=== PATIENT | female | born 1985 | race Caucasian/White ===

== ENCOUNTER 2018-03-10 22:05 | Emergency (ER) | payer OTHER ==
[2018-03-10 22:12] VITALS: RESP 18
--- NOTE | 2018-03-10 23:02 | ED ---
Psych HPI - General Chief Complaint: Psychiatric Symptoms Stated Complaint: psych eval Time Seen by Provider: 03/10/18 22:13 Source: patient, police Mode of arrival: ambulatory - History of Present Illness MD Complaint: suicidal ideation, feels depressed -: week(s) Associated Psychiatric Symptoms: depression, suicidal ideation History of same: Yes Quality: constant Improves With: none Worsens With: none Associated Symptoms: denies other symptoms If Self Harm: admits thoughts of self harm - Related Data Home Medications Medication Instructions Recorded Confirmed Aluminum Chloride [Drysol] 1 applic TP DAILY 12/05/15 01/10/16 Gabapentin [Neurontin] 300 mg PO TID 01/08/16 01/10/16 Diazepam [Valium] 2 mg PO BID 01/10/16 01/10/16 HYDROcodone/APAP 5-325MG [[place] 1 tab PO Q4HR PRN 01/10/16 01/10/16 5-325] Paliperidone [Invega] 9 mg PO DAILY 01/10/16 01/10/16 lamoTRIgine [LaMICtal] 150 mg PO BID 01/10/16 01/10/16 Previous Rx's Medication Instructions Recorded Enoxaparin [Lovenox] 100 mg SQ Q12HR #13 syringe 01/11/16 Warfarin [Coumadin] 5 mg PO DAILY@1800 #7 tab 01/11/16 Allergies Allergy/AdvReac Type Severity Reaction Status Date / Time codeine Allergy Itching Verified 03/10/18 22:10 ibuprofen [From Motrin] Allergy Unknown Verified 03/10/18 22:10 ketorolac tromethamine Allergy Unknown Verified 03/10/18 22:10 [From Toradol] latex Allergy Unknown Verified 03/10/18 22:10 Penicillins Allergy Unknown Verified 03/10/18 22:10 tramadol HCl [From Ultram] Allergy Unknown Verified 03/10/18 22:10 Review of Systems ROS Statement: Those systems with pertinent positive or pertinent negative responses have been documented in the HPI. ROS Other: All systems not noted in ROS Statement are negative. Constitutional: Denies: fever Respiratory: Denies: cough, dyspnea Cardiovascular: Denies: chest pain Gastrointestinal: Denies: abdominal pain, vomiting, diarrhea Genitourinary: Denies: dysuria, hematuria, abnormal menses Musculoskeletal: Denies: back pain Skin: Denies: rash Neurological: Denies: headache Psychiatric: Reports: depression, suicidal thoughts. Denies: auditory hallucinations, visual hallucinations, homicidal thoughts Past Medical History Past Medical History: No Reported History Additional Past Medical History / Comment(s): arthritis, UTI'S,YEAST INFECTIONS , OCC LEAKAGE OF URINE History of Any Multi-Drug Resistant Organisms: MRSA Date of last positivie culture/infection: 2014 MDRO Source:: l axilla Past Surgical History: Bladder Surgery, Orthopedic Surgery Additional Past Surgical History / Comment(s): right total knee replacement, URETHRAL SX WHEN YOUNGER, LT AXILLA HAD MRSA- HAD I&D STATED "THEY HAD TO PACK IT" Past Anesthesia/Blood Transfusion Reactions: No Reported Reaction Past Psychological History: Anxiety, Bipolar, Depression Smoking Status: Current every day smoker Past Alcohol Use History: None Reported Past Drug Use History: Marijuana - Past Family History Mother Family Medical History: Hypertension, Osteoarthritis (OA) Additional Family Medical History / Comment(s): DEPRESSION, DJD Father Family Medical History: No Reported History Sister(s) Family Medical History: Diabetes Mellitus General Exam Limitations: no limitations General appearance: alert, in no apparent distress Head exam: Present: atraumatic, normocephalic Eye exam: Present: normal appearance. Absent: scleral icterus, conjunctival injection ENT exam: Present: normal oropharynx Respiratory exam: Present: normal lung sounds bilaterally. Absent: respiratory distress, wheezes, rales, rhonchi, stridor Cardiovascular Exam: Present: regular rate, normal rhythm, normal heart sounds. Absent: systolic murmur, diastolic murmur, rubs, gallop Neurological exam: Present: alert, normal gait Psychiatric exam: Present: depressed. Absent: agitated, anxious, flat affect, manic, homicidal ideation, suicidal ideation Skin exam: Present: warm, dry, intact, normal color. Absent: rash Course Vital Signs 03/10/18 22:06 Temperature 98.8 F Pulse Rate 75 Respiratory 18 Rate Blood Pressure 93/64 O2 Sat by Pulse 98 Oximetry Medical Decision Making - Lab Data Lab Results 03/10/18 03/10/18 Range/Units 22:43 22:43 Urine HCG, Qual Not Detected (Not Detectd) Urine Opiates Screen Not Detected (NotDetected) Ur Oxycodone Screen Not Detected (NotDetected) Urine Methadone Screen Not Detected (NotDetected) Ur Propoxyphene Screen Not Detected (NotDetected) Ur Barbiturates Screen Not Detected (NotDetected) U Tricyclic Antidepress Not Detected (NotDetected) Ur Phencyclidine Scrn Not Detected (NotDetected) Ur Amphetamines Screen Not Detected (NotDetected) U Methamphetamines Scrn Not Detected (NotDetected) U Benzodiazepines Scrn Not Detected (NotDetected) Urine Cocaine Screen Not Detected (NotDetected) U Marijuana (THC) Screen Detected H (NotDetected) Disposition Clinical Impression: Mood disorder Disposition: HOME SELF-CARE Condition: Fair Instructions: Mood Disorders (ED) Is patient prescribed a controlled substance at d/c from ED?: No Referrals: Hair Larson MD [Primary Care Provider] - 1-2 days
[2018-03-10 23:13] LABS: Amphetamine Screen,Urine Not Detected (NotDetected); Barbiturate Screen,Urine Not Detected (NotDetected); Benzodiazepines Screen,Urine Not Detected (NotDetected); Cocaine Screen,Urine Not Detected (NotDetected); Methadone Screen, Urine Not Detected (NotDetected); Opiate Screen,Urine Not Detected (NotDetected); Oxycodone Screen, Urine Not Detected (NotDetected); Phencyclidine Screen,Urine Not Detected (NotDetected); Tricyclic Antidepressant,Urine Not Detected (NotDetected); Urn Cannabinoid Scrn Detected (NotDetected)
[2018-03-11 01:05] VITALS: BP 100/58; PULSE 100; TEMP 97.9
== END 2018-03-11 01:21 | disposition home or self-care (01) ==
LOC: EC 22:05 → SUPCPDRO 22:05 → EC 03-11 01:21
DX: F39 Unspecified mood [affective] disorder (principal); R45.851 Suicidal ideations; F31.9 Bipolar disorder, unspecified; F41.9 Anxiety disorder, unspecified; F17.200 Nicotine dependence, unspecified, uncomplicated; Z79.899 Other long term (current) drug therapy; Z88.0 Allergy status to penicillin; Z88.5 Allergy status to narcotic agent; Z88.6 Allergy status to analgesic agent; Z91.040 Latex allergy status
CPT/HCPCS: 80306; 81025; 82075; 99285

== ENCOUNTER 2018-06-29 01:02 | Inpatient (IN) | payer MEDICAID, OTHER ==
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
[2018-06-29] MEDS ORDERED: LORazepam 2 MG/ML INJ IM STA (04:45)
[2018-06-29] MEDS ORDERED: ZIPRASIDONE 20 MG VIAL IM STA (04:46)
[2018-06-29] MEDS ORDERED: MAGNESIUM HYDROXIDE 2,400 MG/10 ML CUP PO PRN (06:28)
[2018-06-29] MEDS ORDERED: MAG HYDROX/AL HYDROX/SIMETH 30 ML CUP PO PRN (06:28)
[2018-06-29] MEDS: lamoTRIgine 100 MG TAB PO SCH ×2 (08:10→19:39)
[2018-06-29] MEDS: GABAPENTIN 300 MG CAP PO SCH ×3 (08:10→20:21)
[2018-06-29] MEDS: MELOXICAM 7.5 MG TAB PO SCH (08:16)
[2018-06-29] MEDS ORDERED: DULoxetine HCL 60 MG CAPSULE.DR PO SCH (09:00)
[2018-06-29] MEDS ORDERED: clonazePAM 0.5 MG TAB PO SCH (09:00)
[2018-06-29] MEDS: LORazepam 0.5 MG TAB PO PRN ×2 (09:10→18:23)
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
[2018-06-29] MEDS: ZIPRASIDONE 20 MG VIAL IM PRN (10:44)
--- NOTE | 2018-06-29 17:11 | P.HP ---
Psychiatric H&P - . H&P Date: 06/29/18 History & Physical: Allergies Allergy/AdvReac Type Severity Reaction Status Date / Time codeine Allergy Itching Verified 06/29/18 09:27 ibuprofen [From Motrin] Allergy Unknown Verified 06/29/18 09:27 ketorolac tromethamine Allergy Unknown Verified 06/29/18 12:33 [From Toradol] latex Allergy Unknown Verified 06/29/18 09:27 Penicillins Allergy Unknown Verified 06/29/18 09:27 tramadol HCl [From Ultram] Allergy Unknown Verified 06/29/18 09:27 Vital Signs Temp 97.7 F 06/29/18 12:00 Pulse 90 06/29/18 12:00 Resp 20 06/29/18 12:00 BP 116/72 06/29/18 12:00 Pulse Ox 100 06/29/18 12:00 Intake & Output 06/28/18 06/29/18 06/29/18 18:59 06:59 18:59 Weight 88.36 kg 86.268 kg 06/29/18 16:59 IDENTIFYING DATA: 32-year-old single female patient HPI: Patient admitted to the inpatient psychiatric unit on a petition done by an adult relative. Petition verbalizing "wanting to harm herselfis incoherent. Not taking medication- unknowingly puts herself in harm's way." Also "wanting to harm herself. Wanting to harm others." Patient reports that she is here in the hospital because of a sense of purpose. She says that the reason to be here. She says she can forget about the past and look to the future. She describes that she wants peace on earth and doesn't want fighting. She relates that she wants people to see the bright side. She seems to describe that she remembers thoughts of wanting to harm herself but states that this was a long time ago and denies any recent thoughts. She goes on to state "I would for anybody." "I want to take people's pain away." Regarding some of these concerns on the petition she states she thinks that was the devil speaking to her. PAST PSYCHIATRIC HISTORY: Patient denies any history of auditory hallucinations. She does sometimes she sees things out of the corner of her eye. Says she sees a counselor Eneida through [facility] and sees a DrNader "magaly" who lives in [place] now. She most recently has been on Cymbalta 60 mg twice a day, Lamictal 100 mg twice a day, Klonopin was just started a 0.5 mg daily and she states she doesn't like that. He is also been on Vistaril which she likes as needed for anxiety and Remeron 15 mg at bedtime which has helped her with sleep. She is also noted to be on Neurontin. She doesn't history of bipolar disorder and also describes herself as a worrier. She has had times her she's had thoughts of suicide but never any suicide attempts. PMH: Knee replacement surgery. ALLERGIES: Codeine, Motrin, Toradol, latex, penicillins, Ultram MEDICATIONS: Tylenol when necessary, Maalox when necessary, Klonopin, Cymbalta, Neurontin, Vistaril when necessary, Lamictal, Ativan when necessary, milk of magnesia when necessary, mobic, Remeron, Geodon when necessary CHEMICAL DEPENDENCY HISTORY: Patient states that her drug of choice in the past with marijuana. She has used some cocaine in the past. She has alcohol was never a daily thing. Her last drink was a week ago. She does have a history of overusing Xanax in the past. FAMILY PSYCHIATRIC HISTORY: Mom told her that there is depression in the family. FAMILY CHEMICAL DEPENDENCY HISTORY: None known at this time. SOCIAL HISTORY: Per chart history the patient had a recent relationship breakup. MENTAL STATUS EXAM: She is alert and cooperative with the interview. She is seen with female nursing staff present. Her speech is rapid at times. She denies any history of auditory hallucinations. She has verbalizes sometimes she sees things out of the corner of her eye. Her thought processes are disorganized. Her mood is described as "excellent." She denies any thoughts of harm to self or others. Some of Her thoughts are grandiose in nature. She relays that she would " for anybody." "I want to take people's pain away." I do not note any significant disorientation or memory disturbance. Her insight has some limitations, judgment shows evidence of recent impairment. STRENGTHS/WEAKNESSES: Strengthssome supports; weaknessescoping skills INTELLECTUAL FUNCTIONING: Average IMPRESSIONS: Bipolar disorder, manic with psychosis; likely generalized anxiety disorder; rule out alcohol use disorder, rule out history of stimulant use disorder, rule out history of sedative hypnotic use disorder PLAN: Patient be admitted to the inpatient psychiatric unit [facility] on a voluntary basis. She is agreeable to sign an adult formal voluntary form. She will be placed on SP 15 minute precautions. She'll be participating in group and activity therapies. Recent laboratory workup was done the patient and she will be seen in medical consultation. We will look into family supports. At this time will discontinue Remeron to minimize the antidepressant and we will initiate Geodon 20 mg at bedtime to help with psychosis and to assist with mood stabilization. At this time we'll decrease the dose of Cymbalta discharge is 60 mg daily initiate is presenting in a more manic fashion. We'll discontinue Klonopin, maintain Vistaril when necessary for anxiety. She'll also be maintained on Lamictal for mood stabilization. Estimated length of stay is 5-7 days. Prognosis is guarded.
[2018-06-29 19:00] LABS: Appearance,Urine Clear (Clear); Bacteria,Urine Rare /hpf; Bilirubin,Urine Negative (Negative); Blood,Urine Negative (Negative); Color,Urine Yellow; Glucose,Urine (UA) Negative (Negative); Ketones,Urine Negative (Negative); Leukocyte Esterase,Urine Negative (Negative); Mucus,Urine Occasional /hpf; Nitrite,Urine Negative (Negative); PH, Urine 5.5 (5.0-8.0); Protein,Urine 1+ (Negative); RBC,Urine 1 /hpf (0-5); Specific Gravity,Urine 1.024 (1.001-1.035); Squamous Epithelial Cell,Urine 1 /hpf (0-4); WBC,Urine 1 /hpf (0-5)
[2018-06-29 19:09] LABS: Amphetamine Screen,Urine Not Detected (NotDetected); Cocaine Screen,Urine Not Detected (NotDetected); Opiate Screen,Urine Not Detected (NotDetected); Phencyclidine Screen,Urine Not Detected (NotDetected); Urn Cannabinoid Scrn Detected (NotDetected)
[2018-06-29 19:10] LABS: Barbiturate Screen,Urine Not Detected (NotDetected); Benzodiazepines Screen,Urine Detected (NotDetected); Methadone Screen, Urine Not Detected (NotDetected); Oxycodone Screen, Urine Not Detected (NotDetected); Tricyclic Antidepressant,Urine Not Detected (NotDetected)
[2018-06-29] MEDS: hydrOXYzine PAMOATE 25 MG CAP PO PRN (19:39)
[2018-06-29] MEDS ORDERED: MIRTAZAPINE 15 MG TAB PO SCH (21:00)
[2018-06-29] MEDS ORDERED: ZIPRASIDONE 20 MG CAP PO SCH (21:00)
[2018-06-30] MEDS: ZIPRASIDONE 20 MG VIAL IM PRN (01:57)
[2018-06-30] MEDS: LORazepam 0.5 MG TAB PO PRN ×2 (02:26→15:29)
[2018-06-30] MEDS: lamoTRIgine 100 MG TAB PO SCH ×2 (07:46→20:22)
[2018-06-30] MEDS: GABAPENTIN 300 MG CAP PO SCH ×3 (07:46→20:22)
[2018-06-30] MEDS: DULoxetine HCL 60 MG CAPSULE.DR PO SCH (07:46)
[2018-06-30] MEDS: MELOXICAM 7.5 MG TAB PO SCH (07:46)
[2018-06-30 08:22] LABS: ALT 24 U/L (9-52); AST 27 U/L (14-36); Albumin 4.8 g/dL (3.5-5.0); Alkaline Phosphatase 48 U/L (38-126); Anion Gap 9 mmol/L; Blood Urea Nitrogen 15 mg/dL (7-17); Calcium 9.9 mg/dL (8.4-10.2); Carbon Dioxide 24 mmol/L (22-30); Chloride 107 mmol/L (98-107); Cholesterol 179 mg/dL (<200); Glucose 102 mg/dL (74-99); HDL Cholesterol 80 mg/dL (40-60); LDL Cholesterol,Calculated 87 mg/dL (0-99); Sodium 140 mmol/L (137-145); Total Bilirubin 0.8 mg/dL (0.2-1.3); Total Protein 7.7 g/dL (6.3-8.2); Triglycerides 58 mg/dL (<150)
[2018-06-30 08:24] LABS: Basophils # (A) 0.1 k/uL (0-0.2); Basophils % (A) 1 %; Eosinophils # (A) 0.9 k/uL (0-0.7); Eosinophils % (A) 9 %; HCT 42.1 % (34.0-46.0); HGB 14.4 gm/dL (11.4-16.0); Lymphocytes % (A) 30 %; MCH 31.4 pg (25.0-35.0); MCHC 34.2 g/dL (31.0-37.0); MCV 91.6 fL (80.0-100.0); Mean Platelet Volume 6.4; Monocytes # (A) 0.7 k/uL (0-1.0); Monocytes % (A) 7 %; Neutrophils # (A) 5.3 k/uL (1.3-7.7); Neutrophils % (A) 52 %; Platelet Count 315 k/uL (150-450); RDW 12.5 % (11.5-15.5); WBC 10.2 k/uL (3.8-10.6)
[2018-06-30 09:02] LABS: Potassium 4.2 mmol/L (3.5-5.1)
--- NOTE | 2018-06-30 13:31 | P.PN ---
Progress Note - Text Progress Note Date: 06/30/18 Interval history: Patient is seen in cross coverage again today. She per staff is having difficulties last night going into other people's rooms. A one-to- one was placed last night related to her behavior. She reports that she was looking for Lan whom she describes as the man that she would like to be with. She does not voice any adverse psychotropic medication side effects. Mental status exam: She is alert, she is seen with one-to-one staff present. She is cooperative with the interview. She does not show any significant agitation. Her mood she describes is doing very well. She denies any thoughts of harm to self or others. She makes reference to the man that she wants to spend the rest of her life with and makes reference to looking for him in rooms last night. Her thought processes appear disorganized. She does not verbalize any hallucinations. Plan: Patient will be titrated up on Geodon to 40 more grams at bedtime to help further with psychosis and mood stabilization. We'll maintain other current medications as ordered. We'll continue to monitor for any medication side effects and monitor her ongoing response to treatment. At this time we'll maintain one-to-one precautions.
[2018-06-30] MEDS: hydrOXYzine PAMOATE 25 MG CAP PO PRN (15:29)
[2018-06-30] MEDS ORDERED: ZIPRASIDONE 40 MG CAP PO SCH (21:00)
[2018-06-30] MEDS: LORazepam 2 MG/ML INJ IM PRN (22:18)
[2018-07-01] MEDS: hydrOXYzine PAMOATE 25 MG CAP PO PRN (02:25)
[2018-07-01] MEDS: LORazepam 0.5 MG TAB PO PRN (06:32)
[2018-07-01] MEDS: GABAPENTIN 300 MG CAP PO SCH (08:49)
[2018-07-01] MEDS: lamoTRIgine 100 MG TAB PO SCH ×2 (08:49→20:09)
[2018-07-01] MEDS: DULoxetine HCL 60 MG CAPSULE.DR PO SCH (08:49)
[2018-07-01] MEDS: MELOXICAM 7.5 MG TAB PO SCH (08:49)
--- NOTE | 2018-07-01 11:23 | P.PN ---
Subjective Progress Note Date: 07/01/18 Principal diagnosis: Bipolar disorder, manic with psychosis; likely generalized anxiety disorder; rule out alcohol use disorder, rule out history of stimulant use disorder "I'm so confused, I just want to find a , everybody tells me him wrong and I just want a lot of her body and take care of everybody" Objective - Vital Signs Vital signs: Vital Signs Temp 98.1 F 07/01/18 02:35 Pulse 77 07/01/18 02:35 Resp 16 07/01/18 02:35 BP 130/65 07/01/18 02:35 Pulse Ox 100 06/29/18 12:00 Intake & Output 06/30/18 07/01/18 07/01/18 18:59 06:59 18:59 Weight 87.5 kg - Labs CBC & Chem 7: 06/30/18 07:51 06/30/18 07:54 Labs: Microbiology - Last 24 Hours (Table) 06/29/18 Unknown Urine Culture - Final Urine,Clean Catch Assessment and Plan Assessment: HPI: Patient admitted to the inpatient psychiatric unit on a petition done by an adult relative. Petition verbalizing "wanting to harm herselfis incoherent. Not taking medication- unknowingly puts herself in harm's way." Also "wanting to harm herself. Wanting to harm others." Patient reports that she is here in the hospital because of a sense of purpose. She says that the reason to be here. She says she can forget about the past and look to the future. She describes that she wants peace on earth and doesn't want fighting. She relates that she wants people to see the bright side. She seems to describe that she remembers thoughts of wanting to harm herself but states that this was a long time ago and denies any recent thoughts. She goes on to state "I would for anybody." "I want to take people's pain away." Regarding some of these concerns on the petition she states she thinks that was the devil speaking to her. Mental Status Examination - General Appearance: [ disheveled, bizarre, appears older than stated age Speech/Language: [ rapid, rambled, mumbling, hesitant, halting, expressive, loud Attitude/Behavior: [guarded, irritable, withdrawn, indifferent] Mood: [depressed, anxious, irritable, angry, fearful, hopelessness Affect: [ lively, incongruent, labile, blunted constricted Orientation: [time, person, place situation] Thought Content: [ delusions, obsessions Risk Factors: [suicidal (ideations, plan), and/or Homicidal (ideations, plan), other] Perception: [wnl, denies hallucinations (auditory, visual, tactile), other] Thought Processes: [Not goal-oriented, very concrete, circumstantial, extremely tangential] Concentration/Attention Span: [ impaired] [Per observation and interview with the patient] Recent Memory: [ impaired] [0, 1, 2 or 3 out of 3 in 3 minutes] Remote Memory: [wnl] [past events, as related history] Intelligence: [below average] [based on history, based on vocabulary, syntax, grammar, and content] Judgement: [ poor] [per patient's behavior/history of present illness] Insight: [ poor] [understanding severity of illness/history of present illness] Plan:Patient be admitted to the inpatient psychiatric unit [facility] on a voluntary basis. She is agreeable to sign an adult formal voluntary form. She will be placed on SP 15 minute precautions. She'll be participating in group and activity therapies. Recent laboratory workup was done the patient and she will be seen in medical consultation. We will look into family supports. At this time will discontinue Remeron to minimize the antidepressant and we will initiate Geodon 20 mg at bedtime to help with psychosis and to assist with mood stabilization. At this time we'll decrease the dose of Cymbalta discharge is 60 mg daily initiate is presenting in a more manic fashion. We'll discontinue Klonopin, maintain Vistaril when necessary for anxiety. She'll also be maintained on Lamictal for mood stabilization. Estimated length of stay is 5-7 days. Prognosis is guarded. 07/01/2018: She is taken off her gabapentin, due to her agitation and psychosis haloperidol 5 mg IM given now, with 3 mg Haldol when necessary 4 hours, change Lamictal to 200 mg at bedtime for mood stability. (1) Acute psychosis Current Visit: Yes Status: Acute Code(s): F23 - BRIEF PSYCHOTIC DISORDER SNOMED Code(s): 91405363 (2) Bipolar disorder Current Visit: Yes Status: Acute Code(s): F31.9 - BIPOLAR DISORDER, UNSPECIFIED SNOMED Code(s): 76630561 Time with Patient: Less than 30
[2018-07-01] MEDS: HALOPERIDOL LACTATE 5 MG/ML 1 ML VIAL IM SCH ×3 (11:42→23:41)
[2018-07-01] MEDS: HALOPERIDOL LACTATE 5 MG/ML 1 ML VIAL IM PRN (19:48)
[2018-07-01] MEDS: LORazepam 2 MG/ML INJ IM PRN (19:48)
[2018-07-02] MEDS: MELOXICAM 7.5 MG TAB PO SCH (08:16)
[2018-07-02] MEDS: HALOPERIDOL LACTATE 5 MG/ML 1 ML VIAL IM SCH (08:17)
--- NOTE | 2018-07-02 10:10 | P.PN ---
Subjective Progress Note Date: 07/02/18 Principal diagnosis: Bipolar disorder, manic with psychosis; likely generalized anxiety disorder; rule out alcohol use disorder, rule out history of stimulant use disorder "I'm so confused, I just want to find a , everybody tells me him wrong and I just want a lot of her body and take care of everybody" 07/02/2018: Patient was able to communicate better today but still remains delusional, not oriented to time or situation. She displays multiple delusional aspects of her own personal life including being on Facebook and has no idea how to use Facebook. She is not suicidal today but displays wide range of affect from tearfulness to happiness Objective - Vital Signs Vital signs: Vital Signs Temp 97.8 F 07/02/18 06:34 Pulse 106 H 07/02/18 06:34 Resp 18 07/02/18 06:34 BP 125/74 07/02/18 06:34 Pulse Ox 100 06/29/18 12:00 - Labs CBC & Chem 7: 06/30/18 07:51 06/30/18 07:54 Assessment and Plan Assessment: HPI: Patient admitted to the inpatient psychiatric unit on a petition done by an adult relative. Petition verbalizing "wanting to harm herselfis incoherent. Not taking medication- unknowingly puts herself in harm's way." Also "wanting to harm herself. Wanting to harm others." Patient reports that she is here in the hospital because of a sense of purpose. She says that the reason to be here. She says she can forget about the past and look to the future. She describes that she wants peace on earth and doesn't want fighting. She relates that she wants people to see the bright side. She seems to describe that she remembers thoughts of wanting to harm herself but states that this was a long time ago and denies any recent thoughts. She goes on to state "I would for anybody." "I want to take people's pain away." Regarding some of these concerns on the petition she states she thinks that was the devil speaking to her. Mental Status Examination - General Appearance: [ disheveled, bizarre, appears older than stated age Speech/Language: [ rapid, rambled, mumbling, hesitant, halting, expressive, loud Attitude/Behavior: [guarded, irritable, withdrawn, indifferent] Mood: [depressed, anxious, irritable, angry, fearful, hopelessness Affect: [ lively, incongruent, labile, blunted constricted Orientation: [Not to time, person, not to situation Thought Content: [ delusions, obsessions Risk Factors: [Denies suicidal (ideations, plan), and/or Homicidal (ideations, plan), other] Perception: [wnl, admits to hallucinations (auditory, visual, tactile), other] Thought Processes: [Not goal-oriented, very concrete, circumstantial, extremely tangential] Concentration/Attention Span: [ impaired] [Per observation and interview with the patient] Recent Memory: [ impaired] [0, 1, 2 or 3 out of 3 in 3 minutes] Remote Memory: [wnl] [past events, as related history] Intelligence: [below average] [based on history, based on vocabulary, syntax, grammar, and content] Judgement: [ poor] [per patient's behavior/history of present illness] Insight: [ poor] [understanding severity of illness/history of present illness] Plan:Patient be admitted to the inpatient psychiatric unit [facility] on a voluntary basis. She is agreeable to sign an adult formal voluntary form. She will be placed on SP 15 minute precautions. She'll be participating in group and activity therapies. Recent laboratory workup was done the patient and she will be seen in medical consultation. We will look into family supports. At this time will discontinue Remeron to minimize the antidepressant and we will initiate Geodon 20 mg at bedtime to help with psychosis and to assist with mood stabilization. At this time we'll decrease the dose of Cymbalta discharge is 60 mg daily initiate is presenting in a more manic fashion. We'll discontinue Klonopin, maintain Vistaril when necessary for anxiety. She'll also be maintained on Lamictal for mood stabilization. Estimated length of stay is 5-7 days. Prognosis is guarded. 07/01/2018: She is taken off her gabapentin, due to her agitation and psychosis haloperidol 5 mg IM given now, with 3 mg Haldol when necessary 4 hours, change Lamictal to 200 mg at bedtime for mood stability. 07/02/2018: She is stable off her gabapentin, 5 mg IM of Haldol 3 times a day with the change today to 10 mg oral twice a day and Lamictal 200 mg by mouth daily at bedtime for mood stability. Patient admits to smoking marijuana daily and feels it gives her that her concentration. This person lacks insight. (1) Acute psychosis Current Visit: Yes Status: Acute Code(s): F23 - BRIEF PSYCHOTIC DISORDER SNOMED Code(s): 42699427 (2) Bipolar disorder Current Visit: Yes Status: Acute Code(s): F31.9 - BIPOLAR DISORDER, UNSPECIFIED SNOMED Code(s): 02403147 Time with Patient: Greater than 30
[2018-07-02] MEDS: LORazepam 0.5 MG TAB PO PRN (13:34)
[2018-07-02] MEDS: hydrOXYzine PAMOATE 25 MG CAP PO PRN (13:35)
[2018-07-02] MEDS: lamoTRIgine 100 MG TAB PO SCH (20:59)
[2018-07-02] MEDS: HALOPERIDOL ORAL SOLN 10 MG/5 ML CUP PO SCH (21:00)
[2018-07-02] MEDS ORDERED: HALOPERIDOL 5 MG TAB PO SCH (21:00)
[2018-07-03] MEDS: HALOPERIDOL LACTATE 5 MG/ML 1 ML VIAL IM PRN ×2 (03:26→12:40)
[2018-07-03] MEDS: LORazepam 2 MG/ML INJ IM PRN (03:26)
[2018-07-03] MEDS: MELOXICAM 7.5 MG TAB PO SCH (07:59)
[2018-07-03] MEDS: HALOPERIDOL ORAL SOLN 10 MG/5 ML CUP PO SCH (07:59)
[2018-07-03] MEDS: TRIAMCINOLONE 0.1% CREAM 80 GM TUBE TOPICAL PRN ×2 (08:01→19:43)
[2018-07-03] MEDS: hydrOXYzine PAMOATE 25 MG CAP PO PRN (08:01)
[2018-07-03] MEDS ORDERED: HALOPERIDOL DECANOATE 100 MG/ML 1 ML VIAL IM SCH (11:00)
[2018-07-03] MEDS: LORazepam 0.5 MG TAB PO PRN (12:39)
--- NOTE | 2018-07-03 14:00 | P.PN ---
Subjective Progress Note Date: 07/03/18 Principal diagnosis: Bipolar disorder, manic with psychosis; likely generalized anxiety disorder; rule out alcohol use disorder, rule out history of stimulant use disorder "I'm so confused, I just want to find a , everybody tells me him wrong and I just want a lot of her body and take care of everybody" 07/02/2018: Patient was able to communicate better today but still remains delusional, not oriented to time or situation. She displays multiple delusional aspects of her own personal life including being on Facebook and has no idea how to use Facebook. She is not suicidal today but displays wide range of affect from tearfulness to happiness Objective - Vital Signs Vital signs: Vital Signs Temp 97.9 F 07/03/18 06:47 Pulse 89 07/03/18 06:47 Resp 16 07/03/18 06:47 BP 127/81 07/03/18 06:47 Pulse Ox 100 06/29/18 12:00 - Labs CBC & Chem 7: 06/30/18 07:51 06/30/18 07:54 Assessment and Plan Assessment: HPI: Patient admitted to the inpatient psychiatric unit on a petition done by an adult relative. Petition verbalizing "wanting to harm herselfis incoherent. Not taking medication- unknowingly puts herself in harm's way." Also "wanting to harm herself. Wanting to harm others." Patient reports that she is here in the hospital because of a sense of purpose. She says that the reason to be here. She says she can forget about the past and look to the future. She describes that she wants peace on earth and doesn't want fighting. She relates that she wants people to see the bright side. She seems to describe that she remembers thoughts of wanting to harm herself but states that this was a long time ago and denies any recent thoughts. She goes on to state "I would for anybody." "I want to take people's pain away." Regarding some of these concerns on the petition she states she thinks that was the devil speaking to her. Mental Status Examination - General Appearance: [ disheveled, bizarre, appears older than stated age Speech/Language: [ rapid, rambled, mumbling, hesitant, halting, expressive, loud Attitude/Behavior: [guarded, irritable, withdrawn, indifferent] Mood: [depressed, anxious, irritable, angry, fearful, hopelessness Affect: [ lively, incongruent, labile, blunted constricted Orientation: [Not to time, person, not to situation Thought Content: [ delusions, obsessions Risk Factors: [Denies suicidal (ideations, plan), and/or Homicidal (ideations, plan), other] Perception: [wnl, admits to hallucinations (auditory, visual, tactile), other] Thought Processes: [Not goal-oriented, very concrete, circumstantial, extremely tangential] Concentration/Attention Span: [ impaired] [Per observation and interview with the patient] Recent Memory: [ impaired] [0, 1, 2 or 3 out of 3 in 3 minutes] Remote Memory: [wnl] [past events, as related history] Intelligence: [below average] [based on history, based on vocabulary, syntax, grammar, and content] Judgement: [ poor] [per patient's behavior/history of present illness] Insight: [ poor] [understanding severity of illness/history of present illness] Plan:Patient be admitted to the inpatient psychiatric unit [facility] on a voluntary basis. She is agreeable to sign an adult formal voluntary form. She will be placed on SP 15 minute precautions. She'll be participating in group and activity therapies. Recent laboratory workup was done the patient and she will be seen in medical consultation. We will look into family supports. At this time will discontinue Remeron to minimize the antidepressant and we will initiate Geodon 20 mg at bedtime to help with psychosis and to assist with mood stabilization. At this time we'll decrease the dose of Cymbalta discharge is 60 mg daily initiate is presenting in a more manic fashion. We'll discontinue Klonopin, maintain Vistaril when necessary for anxiety. She'll also be maintained on Lamictal for mood stabilization. Estimated length of stay is 5-7 days. Prognosis is guarded. 07/01/2018: She is taken off her gabapentin, due to her agitation and psychosis haloperidol 5 mg IM given now, with 3 mg Haldol when necessary 4 hours, change Lamictal to 200 mg at bedtime for mood stability. 07/02/2018: She is stable off her gabapentin, 5 mg IM of Haldol 3 times a day with the change today to 10 mg oral twice a day and Lamictal 200 mg by mouth daily at bedtime for mood stability. Patient admits to smoking marijuana daily and feels it gives her that her concentration. This person lacks insight. 07/03/2018: She is still hyperverbal and agitated and wandering and thought wandering. Added Haldol decanoate 60 mg today and discontinue the oral 10 mg twice a day. She currently is on Lamictal 200 mg at bedtime for mood stability. (1) Acute psychosis Current Visit: Yes Status: Acute Code(s): F23 - BRIEF PSYCHOTIC DISORDER SNOMED Code(s): 06305769 (2) Bipolar disorder Current Visit: Yes Status: Acute Code(s): F31.9 - BIPOLAR DISORDER, UNSPECIFIED SNOMED Code(s): 01397110
[2018-07-03] MEDS: lamoTRIgine 100 MG TAB PO SCH (20:37)
[2018-07-04] MEDS: lamoTRIgine 100 MG TAB PO SCH ×2 (07:56→21:38)
[2018-07-04] MEDS: MELOXICAM 7.5 MG TAB PO SCH (07:57)
--- NOTE | 2018-07-04 10:13 | P.PN ---
Subjective Progress Note Date: 07/04/18 Principal diagnosis: Bipolar disorder, manic with psychosis; likely generalized anxiety disorder; rule out alcohol use disorder, rule out history of stimulant use disorder "I'm so confused, I just want to find a , everybody tells me him wrong and I just want a lot of her body and take care of everybody" 07/02/2018: Patient was able to communicate better today but still remains delusional, not oriented to time or situation. She displays multiple delusional aspects of her own personal life including being on Facebook and has no idea how to use Facebook. She is not suicidal today but displays wide range of affect from tearfulness to happiness Objective - Vital Signs Vital signs: Vital Signs Temp 98 F 07/04/18 06:23 Pulse 94 07/04/18 06:23 Resp 16 07/04/18 06:23 BP 124/75 07/04/18 06:23 Pulse Ox 100 06/29/18 12:00 - Labs CBC & Chem 7: 06/30/18 07:51 06/30/18 07:54 Labs: Abnormal Lab Results - Last 24 Hours (Table) 07/03/18 Range/Units 11:28 Prolactin 40.5 H (2.8-29.2) ng/mL Assessment and Plan Assessment: HPI: Patient admitted to the inpatient psychiatric unit on a petition done by an adult relative. Petition verbalizing "wanting to harm herselfis incoherent. Not taking medication- unknowingly puts herself in harm's way." Also "wanting to harm herself. Wanting to harm others." Patient reports that she is here in the hospital because of a sense of purpose. She says that the reason to be here. She says she can forget about the past and look to the future. She describes that she wants peace on earth and doesn't want fighting. She relates that she wants people to see the bright side. She seems to describe that she remembers thoughts of wanting to harm herself but states that this was a long time ago and denies any recent thoughts. She goes on to state "I would for anybody." "I want to take people's pain away." Regarding some of these concerns on the petition she states she thinks that was the devil speaking to her. Mental Status Examination - General Appearance: [ disheveled, bizarre, appears older than stated age Speech/Language: [ rapid, rambled, mumbling, hesitant, halting, expressive, loud Attitude/Behavior: [guarded, irritable, withdrawn, indifferent] Mood: [depressed, anxious, irritable, angry, fearful, hopelessness Affect: [ lively, incongruent, labile, blunted constricted Orientation: [Not to time, person, not to situation Thought Content: [ delusions, obsessions Risk Factors: [Denies suicidal (ideations, plan), and/or Homicidal (ideations, plan), other] Perception: [wnl, admits to hallucinations (auditory, visual, tactile), other] Thought Processes: [Not goal-oriented, very concrete, circumstantial, extremely tangential] Concentration/Attention Span: [ impaired] [Per observation and interview with the patient] Recent Memory: [ impaired] [0, 1, 2 or 3 out of 3 in 3 minutes] Remote Memory: [wnl] [past events, as related history] Intelligence: [below average] [based on history, based on vocabulary, syntax, grammar, and content] Judgement: [ poor] [per patient's behavior/history of present illness] Insight: [ poor] [understanding severity of illness/history of present illness] Plan:Patient be admitted to the inpatient psychiatric unit [facility] on a voluntary basis. She is agreeable to sign an adult formal voluntary form. She will be placed on SP 15 minute precautions. She'll be participating in group and activity therapies. Recent laboratory workup was done the patient and she will be seen in medical consultation. We will look into family supports. At this time will discontinue Remeron to minimize the antidepressant and we will initiate Geodon 20 mg at bedtime to help with psychosis and to assist with mood stabilization. At this time we'll decrease the dose of Cymbalta discharge is 60 mg daily initiate is presenting in a more manic fashion. We'll discontinue Klonopin, maintain Vistaril when necessary for anxiety. She'll also be maintained on Lamictal for mood stabilization. Estimated length of stay is 5-7 days. Prognosis is guarded. 07/01/2018: She is taken off her gabapentin, due to her agitation and psychosis haloperidol 5 mg IM given now, with 3 mg Haldol when necessary 4 hours, change Lamictal to 200 mg at bedtime for mood stability. 07/02/2018: She is stable off her gabapentin, 5 mg IM of Haldol 3 times a day with the change today to 10 mg oral twice a day and Lamictal 200 mg by mouth daily at bedtime for mood stability. Patient admits to smoking marijuana daily and feels it gives her that her concentration. This person lacks insight. 07/03/2018: She is still hyperverbal and agitated and wandering and thought wandering. Added Haldol decanoate 60 mg today and discontinue the oral 10 mg twice a day. She currently is on Lamictal 200 mg at bedtime for mood stability. 07/04/2018: She is less hyperverbal today less agitated and more redirectable. She does not suicidal homicidal but still fixated on Lan being her . (1) Acute psychosis Current Visit: Yes Status: Acute Priority: Medium Code(s): F23 - BRIEF PSYCHOTIC DISORDER SNOMED Code(s): 03349952 (2) Bipolar disorder Current Visit: Yes Status: Acute Priority: Medium Code(s): F31.9 - BIPOLAR DISORDER, UNSPECIFIED SNOMED Code(s): 03480885 Time with Patient: Less than 30
[2018-07-05] MEDS: LORazepam 0.5 MG TAB PO PRN (01:24)
[2018-07-05] MEDS: MELOXICAM 7.5 MG TAB PO SCH (08:14)
[2018-07-05] MEDS: lamoTRIgine 100 MG TAB PO SCH ×2 (08:14→20:29)
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
[2018-07-05] MEDS: HALOPERIDOL LACTATE 5 MG/ML 1 ML VIAL IM PRN (21:10)
[2018-07-05] MEDS: LORazepam 2 MG/ML INJ IM PRN (21:12)
[2018-07-06] MEDS: lamoTRIgine 100 MG TAB PO SCH ×3 (08:08→23:35)
[2018-07-06] MEDS: MELOXICAM 7.5 MG TAB PO SCH (08:08)
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
[2018-07-06] MEDS: HALOPERIDOL LACTATE 5 MG/ML 1 ML VIAL IM PRN (16:49)
[2018-07-06] MEDS: LORazepam 2 MG/ML INJ IM PRN (16:49)
[2018-07-06] MEDS: HALOPERIDOL ORAL SOLN 10 MG/5 ML CUP PO SCH ×2 (20:49→23:35)
[2018-07-07] MEDS: MELOXICAM 7.5 MG TAB PO SCH (08:19)
[2018-07-07] MEDS: lamoTRIgine 100 MG TAB PO SCH ×2 (08:19→20:04)
[2018-07-07] MEDS: HALOPERIDOL ORAL SOLN 10 MG/5 ML CUP PO SCH ×2 (08:19→20:04)
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
[2018-07-07] MEDS: HALOPERIDOL LACTATE 5 MG/ML 1 ML VIAL IM PRN (14:41)
[2018-07-07] MEDS: LORazepam 2 MG/ML INJ IM PRN (14:42)
[2018-07-08] MEDS: HALOPERIDOL ORAL SOLN 10 MG/5 ML CUP PO SCH ×2 (07:44→21:42)
[2018-07-08] MEDS: MELOXICAM 7.5 MG TAB PO SCH (07:45)
[2018-07-08] MEDS: lamoTRIgine 100 MG TAB PO SCH ×2 (07:45→21:44)
[2018-07-08] MEDS: LORazepam 0.5 MG TAB PO PRN (10:18)
[2018-07-08] MEDS: hydrOXYzine PAMOATE 25 MG CAP PO PRN ×2 (10:18→18:24)
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
[2018-07-08] MEDS: HALOPERIDOL LACTATE 5 MG/ML 1 ML VIAL IM PRN (16:26)
[2018-07-08] MEDS: LORazepam 2 MG/ML INJ IM PRN (16:27)
[2018-07-09] MEDS: LORazepam 0.5 MG TAB PO PRN ×2 (08:02→16:24)
[2018-07-09] MEDS: MELOXICAM 7.5 MG TAB PO SCH (08:03)
[2018-07-09] MEDS: lamoTRIgine 100 MG TAB PO SCH ×2 (08:03→22:23)
[2018-07-09] MEDS: hydrOXYzine PAMOATE 25 MG CAP PO PRN ×2 (08:03→16:22)
[2018-07-09] MEDS: HALOPERIDOL ORAL SOLN 10 MG/5 ML CUP PO SCH (08:04)
[2018-07-09] MEDS: HALOPERIDOL LACTATE 5 MG/ML 1 ML VIAL IM PRN (11:02)
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
[2018-07-09] MEDS ORDERED: flUPHENAZine 2.5 MG/ML (MDV) 10 ML VIAL IM SCH (18:00)
[2018-07-09] MEDS: flUPHENAZine 2.5 MG/ML (MDV) 10 ML VIAL IM PRN (18:44)
[2018-07-09] MEDS: BENZTROPINE MESYLATE 1 MG TAB PO SCH (22:23)
[2018-07-10] MEDS: LORazepam 0.5 MG TAB PO PRN (06:51)
[2018-07-10] MEDS: BENZTROPINE MESYLATE 1 MG TAB PO SCH ×2 (08:24→20:14)
[2018-07-10] MEDS: lamoTRIgine 100 MG TAB PO SCH ×2 (08:24→20:14)
[2018-07-10] MEDS: MELOXICAM 7.5 MG TAB PO SCH (08:24)
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
[2018-07-11] MEDS: ACETAMINOPHEN TAB 325 MG TAB PO PRN (03:34)
[2018-07-11] MEDS: LORazepam 0.5 MG TAB PO PRN (03:37)
[2018-07-11] MEDS: lamoTRIgine 100 MG TAB PO SCH ×2 (07:50→21:15)
[2018-07-11] MEDS: BENZTROPINE MESYLATE 1 MG TAB PO SCH ×2 (07:50→21:15)
[2018-07-11] MEDS: MELOXICAM 7.5 MG TAB PO SCH (07:50)
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
[2018-07-11] MEDS: flUPHENAZine 2.5 MG/ML (MDV) 10 ML VIAL IM PRN (17:17)
[2018-07-11] MEDS: LORazepam 2 MG/ML INJ IM PRN (17:17)
[2018-07-11] MEDS: TRIAMCINOLONE 0.1% CREAM 80 GM TUBE TOPICAL PRN (17:39)
[2018-07-12] MEDS: LORazepam 2 MG/ML INJ IM PRN (01:16)
[2018-07-12] MEDS: flUPHENAZine 2.5 MG/ML (MDV) 10 ML VIAL IM PRN (01:17)
[2018-07-12] MEDS ORDERED: flUPHENAZine 2.5 MG/ML (MDV) 10 ML VIAL IM STA (02:04)
[2018-07-12] MEDS ORDERED: diphenhydrAMINE 50 MG/ML 1 ML VIAL IM STA (02:06)
[2018-07-12] MEDS: lamoTRIgine 100 MG TAB PO SCH ×2 (07:46→20:49)
[2018-07-12] MEDS: BENZTROPINE MESYLATE 1 MG TAB PO SCH ×2 (07:46→20:48)
[2018-07-12] MEDS: MELOXICAM 7.5 MG TAB PO SCH (07:46)
[2018-07-12] MEDS: ACETAMINOPHEN TAB 325 MG TAB PO PRN ×2 (07:47→16:49)
[2018-07-12 09:05] VITALS: BMI 34.2
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
[2018-07-12] MEDS: LORazepam 0.5 MG TAB PO PRN ×2 (12:00→19:03)
[2018-07-12] MEDS: flUPHENAZine 2.5 MG/ML (MDV) 10 ML VIAL IM SCH ×2 (15:27→23:56)
[2018-07-12] MEDS: TRIAMCINOLONE 0.1% CREAM 80 GM TUBE TOPICAL PRN (16:49)
[2018-07-12] MEDS ORDERED: diphenhydrAMINE 50 MG CAP PO STA (16:55)
[2018-07-12] MEDS: DIVALPROEX ER 250 MG TAB.ER.24H PO SCH (20:48)
[2018-07-13] MEDS: LORazepam 0.5 MG TAB PO PRN (06:53)
[2018-07-13] MEDS: BENZTROPINE MESYLATE 1 MG TAB PO SCH ×2 (08:44→21:26)
[2018-07-13] MEDS: MELOXICAM 7.5 MG TAB PO SCH (08:45)
[2018-07-13] MEDS: DIVALPROEX ER 250 MG TAB.ER.24H PO SCH ×2 (08:45→21:26)
[2018-07-13] MEDS: lamoTRIgine 100 MG TAB PO SCH ×2 (08:45→21:26)
[2018-07-13] MEDS: flUPHENAZine 2.5 MG/ML (MDV) 10 ML VIAL IM SCH ×2 (08:48→23:03)
[2018-07-13] MEDS: ACETAMINOPHEN TAB 325 MG TAB PO PRN (10:12)
[2018-07-13] MEDS ORDERED: BENZTROPINE MESYLATE 1 MG TAB ONE (15:12)
[2018-07-13] MEDS ORDERED: DIVALPROEX 250 MG TABLET.DR PO ONE (15:12)
[2018-07-13] MEDS ORDERED: flUPHENAZine 2.5 MG/ML (MDV) 10 ML VIAL IM ONE (15:12)
[2018-07-13] MEDS ORDERED: lamoTRIgine 100 MG TAB ONE (15:12)
[2018-07-13] MEDS ORDERED: LORazepam 0.5 MG TAB ONE (15:12)
[2018-07-14] MEDS: LORazepam 0.5 MG TAB PO PRN ×2 (05:18→12:33)
[2018-07-14] MEDS: flUPHENAZine 2.5 MG/ML (MDV) 10 ML VIAL IM SCH ×4 (07:43→23:51)
[2018-07-14] MEDS: MELOXICAM 7.5 MG TAB PO SCH (07:55)
[2018-07-14] MEDS: BENZTROPINE MESYLATE 1 MG TAB PO SCH ×2 (07:55→20:04)
[2018-07-14] MEDS: DIVALPROEX ER 250 MG TAB.ER.24H PO SCH ×2 (07:55→20:05)
[2018-07-14] MEDS: lamoTRIgine 100 MG TAB PO SCH ×2 (07:55→20:05)
[2018-07-14] MEDS: ACETAMINOPHEN TAB 325 MG TAB PO PRN ×3 (12:33→23:56)
--- NOTE | 2018-07-14 16:51 | P.PN ---
Progress Note - Text Progress Note Date: 07/14/18 IDENTIFICATION DATA: 32-year-old woman petitioned for bizarre and unpredictable behaviors. INTERVAL HISTORY: Patient reports being compliant with all her medications. Denies side effects. She was very when she stated she was able to turn a bad situation into a positive one. She reports good sleep and appetite. No major behavioral problems reported. MENTAL STATUS EXAMINATION: Patient appeared in fair grooming and hygiene. Her speech is linear and goal directed. Her mood is reported as good and affect appropriate. Denies active suicidal or homicidal ideations. Denies current auditory or visual hallucinations. Denies paranoia. Insight and judgment are improving ASSESSMENT AND PLAN: Continue current medications Monitor for safety and symptoms
[2018-07-15] MEDS: LORazepam 0.5 MG TAB PO PRN ×3 (05:59→20:08)
[2018-07-15] MEDS: BENZTROPINE MESYLATE 1 MG TAB PO SCH ×2 (08:07→20:05)
[2018-07-15] MEDS: DIVALPROEX ER 250 MG TAB.ER.24H PO SCH (08:07)
[2018-07-15] MEDS: MELOXICAM 7.5 MG TAB PO SCH (08:07)
[2018-07-15] MEDS: flUPHENAZine 2.5 MG/ML (MDV) 10 ML VIAL IM SCH (08:09)
[2018-07-15] MEDS: lamoTRIgine 100 MG TAB PO SCH (08:09)
[2018-07-15] MEDS ORDERED: flUPHENAZine 2.5 MG/ML (MDV) 10 ML VIAL IM PRN (11:01)
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
[2018-07-15] MEDS: ACETAMINOPHEN TAB 325 MG TAB PO PRN (14:29)
[2018-07-15] MEDS: DIVALPROEX ER 500 MG TAB.ER.24H PO SCH (20:05)
[2018-07-15] MEDS: LORazepam 2 MG/ML INJ IM PRN (21:15)
[2018-07-16] MEDS: LORazepam 0.5 MG TAB PO PRN ×3 (07:55→22:12)
[2018-07-16] MEDS: BENZTROPINE MESYLATE 1 MG TAB PO SCH ×2 (07:55→20:54)
[2018-07-16] MEDS: MELOXICAM 7.5 MG TAB PO SCH (07:55)
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
[2018-07-16] MEDS: ACETAMINOPHEN TAB 325 MG TAB PO PRN (16:50)
[2018-07-16] MEDS: DIVALPROEX ER 500 MG TAB.ER.24H PO SCH (20:54)
[2018-07-17] MEDS: BENZTROPINE MESYLATE 1 MG TAB PO SCH ×2 (08:02→20:11)
[2018-07-17] MEDS: MELOXICAM 7.5 MG TAB PO SCH (08:04)
[2018-07-17] MEDS: LORazepam 0.5 MG TAB PO PRN ×3 (08:07→22:36)
[2018-07-17] MEDS: ACETAMINOPHEN TAB 325 MG TAB PO PRN ×2 (10:13→16:39)
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
[2018-07-17] MEDS: DIVALPROEX ER 500 MG TAB.ER.24H PO SCH (20:11)
[2018-07-17] MEDS ORDERED: flUPHENAZine 2.5 MG/ML (MDV) 10 ML VIAL IM STA (22:12)
[2018-07-18] MEDS: MELOXICAM 7.5 MG TAB PO SCH (07:35)
[2018-07-18] MEDS: BENZTROPINE MESYLATE 1 MG TAB PO SCH ×2 (07:35→20:03)
[2018-07-18] MEDS: LORazepam 0.5 MG TAB PO PRN ×3 (07:40→23:02)
[2018-07-18 07:42] VITALS: RESP 16
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
[2018-07-18] MEDS: ACETAMINOPHEN TAB 325 MG TAB PO PRN ×3 (11:48→20:03)
[2018-07-18] MEDS: DIVALPROEX ER 500 MG TAB.ER.24H PO SCH (20:03)
[2018-07-19] MEDS: MELOXICAM 7.5 MG TAB PO SCH (08:09)
[2018-07-19] MEDS: BENZTROPINE MESYLATE 1 MG TAB PO SCH ×2 (08:09→20:20)
[2018-07-19] MEDS: LORazepam 0.5 MG TAB PO PRN ×2 (08:10→17:21)
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
[2018-07-19] MEDS: flUPHENAZine 2.5 MG/ML (MDV) 10 ML VIAL IM PRN ×2 (12:18→20:25)
[2018-07-19] MEDS: ACETAMINOPHEN TAB 325 MG TAB PO PRN ×2 (13:05→21:45)
[2018-07-19] MEDS: DIVALPROEX ER 500 MG TAB.ER.24H PO SCH (20:20)
[2018-07-20] MEDS: BENZTROPINE MESYLATE 1 MG TAB PO SCH ×2 (07:42→20:05)
[2018-07-20] MEDS: MELOXICAM 7.5 MG TAB PO SCH (07:42)
[2018-07-20] MEDS: LORazepam 0.5 MG TAB PO PRN ×3 (07:42→23:28)
--- NOTE | 2018-07-20 11:47 | P.PN ---
Progress Note - Text Interval history: The patient is found in her room she follows me to the library to speak. She was taken off of one-to-one supervision yesterday. She states that she slept well and plans on staying in her room to "stay out of trouble". She anticipates a visit from her mother and boyfriend. She has no questions or concerns regarding her medication. Staff report no behavioral disturbances. Mental status exam: The patient is alert she is dressed in her own clothing she has a disheveled appearance hygiene is adequate. Speech is fluent spontaneous nonpressured. She is somewhat tired appearing but not lethargic. She yawned several times throughout the session. She indicates having no suicidal or homicidal ideation intent or plan. She reports no racing thoughts. She demonstrates no verbal or physical aggressiveness. She demonstrates no involuntary repetitive movements. Plan: The patient will continue on her current psychiatric medication. Depakote level is pending. Vital signs reviewed. We will continue to monitor for safety.
[2018-07-20] MEDS: DIVALPROEX ER 500 MG TAB.ER.24H PO SCH (20:05)
[2018-07-20] MEDS: ACETAMINOPHEN TAB 325 MG TAB PO PRN (23:29)
[2018-07-21] MEDS: BENZTROPINE MESYLATE 1 MG TAB PO SCH ×2 (08:52→20:05)
[2018-07-21] MEDS: MELOXICAM 7.5 MG TAB PO SCH (08:52)
[2018-07-21] MEDS: LORazepam 0.5 MG TAB PO PRN ×2 (08:54→17:18)
--- NOTE | 2018-07-21 13:06 | P.PN ---
Progress Note - Text Interval history: The patient is found in her room she follows me to the [facility] to speak. She indicates her mood is good she states that she had good visit last evening. She indicates she slept all night staff reported she slept 5 hours. Appetite is stable. She feels that her thoughts are becoming more organized. She has no questions or concerns regarding her medication. Free Depakote level is 4.9. She continues to remain in her room for portions of the day which she feels helps her focus. Mental status exam: The patient is alert she is dressed in her own clothing hygiene grooming adequate. Eye contact is appropriate speech is fluent spontaneous nonpressured. Affect is mildly expansive. She demonstrates no tangential thinking and flight of ideas or loose associations. She is reporting no auditory or visual hallucinations or any specific delusions. She demonstrates no verbal or physical aggressiveness. She demonstrates no involuntary repetitive movements. She denies having any suicidal or homicidal ideation intent or plan. She spontaneously describes future oriented thoughts and is hoping to be discharged tomorrow. Plan: The patient will continue on her current psychotropic medication. We will monitor her for safety she is encouraged participate in the milieu but is choosing to isolate at this time. Vital signs reviewed.
[2018-07-21] MEDS: TRIAMCINOLONE 0.1% CREAM 80 GM TUBE TOPICAL PRN (19:47)
[2018-07-21] MEDS: DIVALPROEX ER 500 MG TAB.ER.24H PO SCH (20:05)
[2018-07-21] MEDS: ACETAMINOPHEN TAB 325 MG TAB PO PRN (22:05)
[2018-07-22] MEDS: LORazepam 0.5 MG TAB PO PRN (01:49)
[2018-07-22 01:51] VITALS: BP 106/67; PULSE 94; TEMP 97.6
[2018-07-22] MEDS: MELOXICAM 7.5 MG TAB PO SCH (07:38)
[2018-07-22] MEDS: BENZTROPINE MESYLATE 1 MG TAB PO SCH (07:38)
[2018-07-22] MEDS ORDERED: fluPHENAZine DECANOATE 25 MG/ML 5ML MDV IM ONE (10:57)
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
[2018-07-22] MEDS: ACETAMINOPHEN TAB 325 MG TAB PO PRN (13:20)
== END 2018-07-22 14:10 | disposition home or self-care (01) | DRG 885 ==
LOC: EC 01:02 → 3MHU 06:26
PROVIDERS: ADMIT Psychiatry & Neurology Psychiatry; ATTEND Psychiatry & Neurology Psychiatry
DX: F31.2 Bipolar disorder, current episode manic severe with psychotic features (principal); R45.851 Suicidal ideations; Z87.891 Personal history of nicotine dependence; F41.1 Generalized anxiety disorder; Z79.899 Other long term (current) drug therapy; Z81.8 Family history of other mental and behavioral disorders; Z82.49 Family history of ischemic heart disease and other diseases of the circulatory system; Z83.3 Family history of diabetes mellitus; Z86.14 Personal history of Methicillin resistant Staphylococcus aureus infection; Z91.5 Personal history of self-harm; Z96.651 Presence of right artificial knee joint; M19.90 Unspecified osteoarthritis, unspecified site; Z82.61 Family history of arthritis; G62.9 Polyneuropathy, unspecified; Z87.440 Personal history of urinary (tract) infections; T50.906A Underdosing of unspecified drugs, medicaments and biological substances, initial encounter; Z91.138 Patient's unintentional underdosing of medication regimen for other reason; Z88.5 Allergy status to narcotic agent; Z88.0 Allergy status to penicillin; Z88.8 Allergy status to other drugs, medicaments and biological substances; Z88.6 Allergy status to analgesic agent; Z91.040 Latex allergy status; Z86.718 Personal history of other venous thrombosis and embolism; I10 Essential (primary) hypertension
CPT/HCPCS: 80053; 80061; 80165; 80173; 80175; 80306; 81001; 81025; 82075; 83036; 84146; 84443; 85025; 87086; 96372; 99285

== ENCOUNTER 2019-11-03 10:40 | Inpatient (IN) | payer OTHER, MEDICAID ==
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
[2019-11-03 11:15] LABS: Appearance,Urine Cloudy (Clear); Bacteria,Urine Many /hpf; Bilirubin,Urine Negative (Negative); Blood,Urine Trace (Negative); Color,Urine Light Yellow; Glucose,Urine (UA) Negative (Negative); Ketones,Urine Negative (Negative); Leukocyte Esterase,Urine Moderate (Negative); Nitrite,Urine Negative (Negative); Protein,Urine Negative (Negative); RBC,Urine 1 /hpf (0-5); Specific Gravity,Urine 1.012 (1.001-1.035); Squamous Epithelial Cell,Urine 1 /hpf (0-4); Urobilinogen,Urine <2.0 mg/dL (<2.0); WBC,Urine 18 /hpf (0-5)
[2019-11-03 11:18] LABS: Amphetamine Screen,Urine Not Detected (NotDetected); Barbiturate Screen,Urine Not Detected (NotDetected); Benzodiazepines Screen,Urine Not Detected (NotDetected); Cocaine Screen,Urine Not Detected (NotDetected); Methadone Screen, Urine Not Detected (NotDetected); Opiate Screen,Urine Not Detected (NotDetected); Oxycodone Screen, Urine Not Detected (NotDetected); Phencyclidine Screen,Urine Not Detected (NotDetected); Tricyclic Antidepressant,Urine Detected (NotDetected); Urn Cannabinoid Scrn Detected (NotDetected)
[2019-11-03] MEDS ORDERED: ACETAMINOPHEN TAB 325 MG TAB PO STA ×2 (11:28→15:21)
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
[2019-11-03] MEDS ORDERED: ETOMIDATE 2 MG/ML 10 ML VIAL IVP STA (13:27)
--- NOTE | 2019-11-03 13:30 | XR ---
EXAMINATION TYPE: XR lumbar spine 2 or 3V DATE OF EXAM: 11/03/2019 CLINICAL HISTORY: pain TECHNIQUE: Three views of the lumbar spine are submitted. COMPARISON: 02/10/2014 FINDINGS: There are 5 lumbar type vertebral bodies identified. The lumbar spine shows satisfactory alignment w ithout evidence of acute fracture or dislocation. Vertebral body heights are within normal limits. [id number] degenerative disc space narrowing and spondylosis. Mild lower lumbar facet joint art hropathy. The overlying soft tissue appears unremarkable. IMPRESSION: No acute fracture or dislocation is seen in the lumbar spine. ICD 10 NO FRACTURE, INITIAL EVALUATION
[2019-11-03] MEDS ORDERED: ZIPRASIDONE 20 MG VIAL IM PRN (17:52)
[2019-11-03] MEDS ORDERED: MAGNESIUM HYDROXIDE 2,400 MG/10 ML CUP PO PRN (17:52)
[2019-11-03] MEDS: DIVALPROEX ER 500 MG TAB.ER.24H PO SCH (20:08)
[2019-11-03] MEDS: LITHIUM CARBONATE ER 450 MG TABLET.ER PO SCH (20:08)
[2019-11-03] MEDS: traZODone HCL 50 MG TAB PO SCH (20:08)
[2019-11-03] MEDS ORDERED: DOXEPIN 25 MG CAP PO SCH (21:00)
[2019-11-03] MEDS: hydrOXYzine PAMOATE 25 MG CAP PO PRN (21:28)
[2019-11-03] MEDS: ACETAMINOPHEN TAB 325 MG TAB PO PRN (21:29)
[2019-11-03] MEDS: NICOTINE 21MG/24HR PATCH TRANSDERM SCH (22:30)
[2019-11-03] MEDS: MAG HYDROX/AL HYDROX/SIMETH 30 ML CUP PO PRN (23:23)
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
[2019-11-04] MEDS: LORazepam 1 MG TAB PO PRN ×3 (04:10→23:27)
[2019-11-04] MEDS: LITHIUM CARBONATE ER 450 MG TABLET.ER PO SCH ×2 (08:04→21:14)
[2019-11-04] MEDS: OXYBUTYNIN XL 5 MG TAB.ER.24 PO SCH (08:04)
[2019-11-04] MEDS: NICOTINE 21MG/24HR PATCH TRANSDERM SCH (08:04)
[2019-11-04 08:35] LABS: Basophils # (A) 0.1 k/uL (0-0.2); Basophils % (A) 1 %; Eosinophils # (A) 0.2 k/uL (0-0.7); Eosinophils % (A) 4 %; HCT 38.9 % (34.0-46.0); HGB 12.3 gm/dL (11.4-16.0); Lymphocytes % (A) 32 %; MCH 31.1 pg (25.0-35.0); MCHC 31.6 g/dL (31.0-37.0); MCV 98.4 fL (80.0-100.0); Mean Platelet Volume 7.6; Monocytes # (A) 0.5 k/uL (0-1.0); Monocytes % (A) 9 %; Neutrophils # (A) 3.3 k/uL (1.3-7.7); Neutrophils % (A) 53 %; Platelet Count 254 k/uL (150-450); RBC 3.95 m/uL (3.80-5.40); RDW 12.1 % (11.5-15.5); WBC 6.2 k/uL (3.8-10.6)
[2019-11-04 09:16] LABS: ALT 13 U/L (4-34); AST 17 U/L (14-36); African American GFR (CKD) >90 (>60 ml/min/1.73 sqM); Albumin 3.8 g/dL (3.5-5.0); Alkaline Phosphatase 39 U/L (38-126); Anion Gap 7 mmol/L; Blood Urea Nitrogen 14 mg/dL (7-17); Calcium 9.2 mg/dL (8.4-10.2); Carbon Dioxide 27 mmol/L (22-30); Chloride 106 mmol/L (98-107); Cholesterol 164 mg/dL (<200); Glucose 99 mg/dL (74-99); HDL Cholesterol 63 mg/dL (40-60); LDL Cholesterol,Calculated 87 mg/dL (0-99); Non-African American GFR(CKD) 84 (>60 ml/min/1.73 sqM); Sodium 140 mmol/L (137-145); Total Bilirubin 0.2 mg/dL (0.2-1.3); Total Protein 6.4 g/dL (6.3-8.2); Triglycerides 69 mg/dL (<150)
[2019-11-04 09:38] LABS: Potassium 4.5 mmol/L (3.5-5.1)
[2019-11-04 11:41] LABS: Lithium <0.2 mmol/L
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
[2019-11-04 11:50] LABS: Valproic Acid (Depakene) 73.9 ug/mL
[2019-11-04] MEDS: hydrOXYzine PAMOATE 25 MG CAP PO PRN ×2 (15:45→23:27)
[2019-11-04] MEDS: MAG HYDROX/AL HYDROX/SIMETH 30 ML CUP PO PRN (17:19)
[2019-11-04 17:41] LABS: Hemoglobin A1C 4.9 % (4.0-6.0)
[2019-11-04] MEDS: DIVALPROEX ER 500 MG TAB.ER.24H PO SCH (21:14)
[2019-11-04] MEDS: traZODone HCL 50 MG TAB PO SCH (21:14)
[2019-11-05] MEDS: MAG HYDROX/AL HYDROX/SIMETH 30 ML CUP PO PRN (08:05)
[2019-11-05] MEDS: ACETAMINOPHEN TAB 325 MG TAB PO PRN ×2 (08:06→20:20)
[2019-11-05] MEDS: LITHIUM CARBONATE ER 450 MG TABLET.ER PO SCH ×2 (08:06→20:19)
[2019-11-05] MEDS: NICOTINE 21MG/24HR PATCH TRANSDERM SCH (08:06)
[2019-11-05] MEDS: OXYBUTYNIN XL 5 MG TAB.ER.24 PO SCH (08:06)
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
[2019-11-05] MEDS: LORazepam 1 MG TAB PO PRN ×2 (10:29→18:14)
[2019-11-05] MEDS: hydrOXYzine PAMOATE 25 MG CAP PO PRN (15:32)
[2019-11-05] MEDS: DIVALPROEX ER 500 MG TAB.ER.24H PO SCH (20:19)
[2019-11-05] MEDS: traZODone HCL 50 MG TAB PO SCH (20:20)
[2019-11-05] MEDS: NITROFURANTOIN MONOHYD/M-CRYST 100 MG CAP PO SCH (21:47)
[2019-11-06] MEDS: LITHIUM CARBONATE ER 450 MG TABLET.ER PO SCH ×2 (07:53→20:39)
[2019-11-06] MEDS: NITROFURANTOIN MONOHYD/M-CRYST 100 MG CAP PO SCH ×2 (07:53→20:39)
[2019-11-06] MEDS: OXYBUTYNIN XL 5 MG TAB.ER.24 PO SCH (07:53)
[2019-11-06] MEDS: NICOTINE 21MG/24HR PATCH TRANSDERM SCH (07:53)
[2019-11-06] MEDS: ACETAMINOPHEN TAB 325 MG TAB PO PRN ×2 (11:10→17:17)
[2019-11-06] MEDS: hydrOXYzine PAMOATE 25 MG CAP PO PRN ×2 (11:10→20:40)
--- NOTE | 2019-11-06 12:02 | P.PN ---
Progress Note - Text Interval history: The patient's found in her room she follows me to an interview room.She indicates that her mood is okay. She indicates she slept last night staff reported she slept 6 hours. Staff report that the patient is fairly restless in group she stimulus bound and is not able to tolerate group for very long before she gets up and leaves. We reviewed her psychiatric medication she has no questions or concerns we were able to verify that the dose of Invega Sustenna was given October 26. Mental status exam: The patient's is dressed in the same clothing hygiene grooming fair, eye contact is appropriate speech is fluent spontaneous pressured at times she is verbose. Thought process continues to demonstrate tangential thinking loose associations. She is describing some erotomanic delusions. Insight into her symptoms is impaired. She is reporting no suicidal or homicidal thoughts. She endorses no auditory or visual hallucinations. She demonstrates no verbal or physical aggressiveness. Affect is labile during the session. Plan: The patient will continue on her current psychotropic medications. We will consider augmenting the antipsychotic if necessary. She admits to being off of the Depakote and lithium prior to the admission so I would expect some stabilization with us restarting those medications. Vital signs reviewed. We will continue to monitor for safety. She requires continued psychiatric hospitalization.
[2019-11-06] MEDS: LORazepam 1 MG TAB PO PRN (16:33)
[2019-11-06] MEDS: MAG HYDROX/AL HYDROX/SIMETH 30 ML CUP PO PRN (17:17)
[2019-11-06] MEDS: traZODone HCL 50 MG TAB PO SCH (20:39)
[2019-11-06] MEDS: DIVALPROEX ER 500 MG TAB.ER.24H PO SCH (20:39)
[2019-11-07] MEDS: ACETAMINOPHEN TAB 325 MG TAB PO PRN ×4 (03:05→21:00)
[2019-11-07] MEDS: LORazepam 1 MG TAB PO PRN ×3 (03:06→16:37)
[2019-11-07] MEDS: NICOTINE 21MG/24HR PATCH TRANSDERM SCH (08:00)
[2019-11-07] MEDS: NITROFURANTOIN MONOHYD/M-CRYST 100 MG CAP PO SCH ×2 (08:00→20:57)
[2019-11-07] MEDS: LITHIUM CARBONATE ER 450 MG TABLET.ER PO SCH ×2 (08:00→20:57)
[2019-11-07] MEDS: OXYBUTYNIN XL 5 MG TAB.ER.24 PO SCH (08:00)
--- NOTE | 2019-11-07 11:13 | P.PN ---
Progress Note - Text Interval history: The patient is found in her room she follows me to an interview room. She indicates that she feels irritable today. She states that she still trying to "figure this all out". She again speaks of wanting to be with a man named Johnathon. He states she doesn't know when she is supposed to get . She spontaneously describes disorganized thinking with disorganized delusional thoughts. She has not been attending groups this morning. Appetite stable reportedly she slept last evening. She has no questions or concerns regarding medication. Mental status exam: The patient is an overweight female appearing her stated age. She is dressed in her own clothing. Eye contact is appropriate speech is fluent spontaneous she is verbose. She continues to demonstrate tangential thinking and loose associations. She continues to spontaneously describe disorganized delusional thoughts. She endorses an irritable mood today affect is congruent. She demonstrates no verbal or physical aggressiveness she demonstrates no involuntary repetitive movements. Insight and judgment remain impaired. She is oriented to person place and date. She reports no suicidal ideation intent or plan. Plan: The patient will continue on her current psychotropic medications. I will add 3 mg of invega at bedtime to supplement the Invega Sustenna injection that she received on October 26. We are allowing the lithium and Depakote time to reach steady state we will draw blood levels next week. She requires continued psychi atric hospitalization for her acute symptoms. Vital signs reviewed. She is encouraged to fully participate in the milieu.
[2019-11-07] MEDS: DIVALPROEX ER 500 MG TAB.ER.24H PO SCH (20:56)
[2019-11-07] MEDS: PALIPERIDONE 3 MG TAB.ER.24 PO SCH (20:57)
[2019-11-07] MEDS: traZODone HCL 50 MG TAB PO SCH (20:57)
[2019-11-08] MEDS: NICOTINE 21MG/24HR PATCH TRANSDERM SCH (08:36)
[2019-11-08] MEDS: LITHIUM CARBONATE ER 450 MG TABLET.ER PO SCH ×2 (08:36→20:42)
[2019-11-08] MEDS: LORazepam 1 MG TAB PO PRN (08:37)
[2019-11-08] MEDS: ACETAMINOPHEN TAB 325 MG TAB PO PRN ×2 (08:37→17:34)
[2019-11-08] MEDS: OXYBUTYNIN XL 5 MG TAB.ER.24 PO SCH (08:37)
[2019-11-08] MEDS: NITROFURANTOIN MONOHYD/M-CRYST 100 MG CAP PO SCH ×2 (08:37→20:43)
[2019-11-08] MEDS: hydrOXYzine PAMOATE 25 MG CAP PO PRN ×2 (12:36→17:34)
--- NOTE | 2019-11-08 16:11 | P.PN ---
Progress Note - Text Progress Note Date: 11/08/19 Clinical Problems: Bipolar disorder most recent episode manic with psychotic features, cannabis use disorder Interim history: And the medical record and interviewed the patient. She was without complaint or concern. She denied side effects to her current medications. She talked openly about the circumstances that led to this hospitalization included the belief that she has special garcia for example that she can control the weather and can control the outcome "of the world." She has had no episodes of behavioral dyscontrol. She fequently requests history for complaints of "anxiety". She intermittently attends therapeutic groups and activities. She slept 6 hours last night. Mental status exam: She presented as a moderately obese 34-year-old female who was pleasant on approach. She manic contact and attended the interview. She is a bright facial expression. She showed no abnormality of psychomotor activity. She was not restless or agitated. Her speech was spontaneous with normal rate and rhythm. She had no articulation difficulties. Her affect was elevated but appropriate. She denied suicidal ideation, wishes or homicidal ideation. She denied feeling hopeless, helpless or worthless. She denied ideas of reference or paranoid ideation. But expressed grandiose delusional beliefs involving special garcia and abilities. Her thinking was abstract and associations were organized. She denied hallucinations and did not appear to be responding to internal stimuli. Assessment: She has elevated mood but minimal signs or symptoms of sourav or help her sourav. She continues to maintain grandiose delusional beliefs. Plan: Tenuous inpatient treatment. Continue safety precautions. Continue Depakote 1500 mg at bedtime, Vistaril 50 mg by mouth 3 times a day, Lithobid 450 mg twice a day, Invega 3 mg at bedtime and Desyrel 50 mg at bedtime. Encourage participation in therapeutic groups and activities. Evaluate clinical status response to treatment daily basis.
[2019-11-08] MEDS: DIVALPROEX ER 500 MG TAB.ER.24H PO SCH (20:42)
[2019-11-08] MEDS: traZODone HCL 50 MG TAB PO SCH (20:42)
[2019-11-08] MEDS: PALIPERIDONE 3 MG TAB.ER.24 PO SCH (20:42)
[2019-11-09] MEDS: NICOTINE 21MG/24HR PATCH TRANSDERM SCH (10:47)
[2019-11-09] MEDS: LITHIUM CARBONATE ER 450 MG TABLET.ER PO SCH ×2 (10:47→20:41)
[2019-11-09] MEDS: NITROFURANTOIN MONOHYD/M-CRYST 100 MG CAP PO SCH ×2 (10:48→20:41)
[2019-11-09] MEDS: OXYBUTYNIN XL 5 MG TAB.ER.24 PO SCH (10:48)
[2019-11-09] MEDS: ACETAMINOPHEN TAB 325 MG TAB PO PRN ×2 (10:50→20:44)
[2019-11-09] MEDS: LORazepam 1 MG TAB PO PRN ×2 (10:50→20:44)
[2019-11-09 11:07] LABS: ALT 11 U/L (4-34); AST 17 U/L (14-36); African American GFR (CKD) >90 (>60 ml/min/1.73 sqM); Blood Urea Nitrogen 13 mg/dL (7-17); Lithium 0.7 mmol/L; Non-African American GFR(CKD) >90 (>60 ml/min/1.73 sqM)
[2019-11-09 11:12] LABS: Valproic Acid (Depakene) 66.9 ug/mL
--- NOTE | 2019-11-09 14:55 | P.PN ---
Progress Note - Text Progress Note Date: 11/09/19 Clinical Problems: Bipolar disorder most recent episode manic with psychotic features, cannabis use disorder Interim history: I reviewed the medical record and interviewed the patient. Only concern was discharge. She denied side effects to her current medications. She did not talk about her "special abilities". She has had no episodes of behavioral dyscontrol. She intermittently attends therapeutic groups and activities. She slept 7 hours last night. [place] level from this morning was 0.7 and valproic acid level was 66.9 Mental status exam: She presented as a moderately obese 34-year-old female who was pleasant on approach. She manic contact and attended the interview. She is a bright facial expression. She showed no abnormality of psychomotor activity. She was not restless or agitated. Her speech was spontaneous with normal rate and rhythm. She had no articulation difficulties. Her affect was elevated but appropriate. She denied suicidal ideation, wishes or homicidal ideation. She denied feeling hopeless, helpless or worthless. She denied ideas of reference or paranoid ideation. But expressed grandiose delusional beliefs involving special garcia and abilities. Her thinking was abstract and associations were organized. She denied hallucin ations and did not appear to be responding to internal stimuli. Assessment: She has elevated mood but minimal signs or symptoms of sourav or help her sourav. Plan: Continue inpatient treatment. Continue safety precautions. Continue Depakote 1500 mg at bedtime, Vistaril 50 mg by mouth 3 times a day, Lithobid 450 mg twice a day, Invega 3 mg at bedtime and Desyrel 50 mg at bedtime. Encourage participation in therapeutic groups and activities. Evaluate clinical status response to treatment daily basis.
[2019-11-09] MEDS: hydrOXYzine PAMOATE 25 MG CAP PO PRN (17:38)
[2019-11-09] MEDS: PALIPERIDONE 3 MG TAB.ER.24 PO SCH (20:41)
[2019-11-09] MEDS: traZODone HCL 50 MG TAB PO SCH (20:41)
[2019-11-09] MEDS: DIVALPROEX ER 500 MG TAB.ER.24H PO SCH (20:41)
[2019-11-10] MEDS: NICOTINE 21MG/24HR PATCH TRANSDERM SCH (08:42)
[2019-11-10] MEDS: NITROFURANTOIN MONOHYD/M-CRYST 100 MG CAP PO SCH ×2 (08:42→19:51)
[2019-11-10] MEDS: OXYBUTYNIN XL 5 MG TAB.ER.24 PO SCH (08:42)
[2019-11-10] MEDS: LITHIUM CARBONATE ER 450 MG TABLET.ER PO SCH ×2 (08:42→19:51)
[2019-11-10] MEDS: LORazepam 1 MG TAB PO PRN ×3 (08:43→22:43)
[2019-11-10] MEDS: ACETAMINOPHEN TAB 325 MG TAB PO PRN ×2 (08:43→13:39)
--- NOTE | 2019-11-10 10:12 | P.PN ---
Progress Note - Text Interval history: The patient is found in her room she follows me to an interview room. She reports that she feels good. She states that she would like to be discharged today. I reviewed progress notes from the weekend. No report of any behavioral disturbances. Lab work is returned and it all is within normal limits in terms of the Depakote level lithium level BUN/creatinine and liver enzymes. She indicates she is sleeping at night. She is selectively attending groups. Appetite stable. She reports talking to her mother via phone. Mental status exam: The patient is an obese female appearing her stated age. She is dressed in her own clothing. Hygiene grooming adequate. Eye contact is appropriate speech is fluent and spontaneous nonpressured. She reports no hopelessness thinking no suicidal ideation intent or plan. She is reporting no auditory or visual hallucinations she is reporting no specific delusions. She states that she still would like to speak to Johnathon but she appears less preoccupied with this individual. She indicates she has no way of contacting him. She demonstrates no tangential thinking loose associations or flight of ideas today. Insight and judgment improving. Plan: The patient appears to be clinically stabilizing. Her lab work is within acceptable limits. We will monitor her for symptoms of sourav and psychosis again today. If she remains stable and shows continued signs of improvement she may be appropriate for discharge in the next 1-2 days.
[2019-11-10] MEDS: MAG HYDROX/AL HYDROX/SIMETH 30 ML CUP PO PRN (12:22)
[2019-11-10] MEDS: hydrOXYzine PAMOATE 25 MG CAP PO PRN (13:39)
[2019-11-10] MEDS: PALIPERIDONE 3 MG TAB.ER.24 PO SCH (19:50)
[2019-11-10] MEDS: DIVALPROEX ER 500 MG TAB.ER.24H PO SCH (19:51)
[2019-11-10] MEDS: traZODone HCL 50 MG TAB PO SCH (19:51)
[2019-11-11 06:33] VITALS: BP 120/55; PULSE 68; RESP 15
[2019-11-11] MEDS: LITHIUM CARBONATE ER 450 MG TABLET.ER PO SCH ×2 (08:18→19:49)
[2019-11-11] MEDS: NITROFURANTOIN MONOHYD/M-CRYST 100 MG CAP PO SCH ×2 (08:18→19:49)
[2019-11-11] MEDS: NICOTINE 21MG/24HR PATCH TRANSDERM SCH (08:18)
[2019-11-11] MEDS: OXYBUTYNIN XL 5 MG TAB.ER.24 PO SCH (08:18)
[2019-11-11] MEDS: LORazepam 1 MG TAB PO PRN ×2 (08:20→16:08)
[2019-11-11] MEDS: ACETAMINOPHEN TAB 325 MG TAB PO PRN ×2 (08:20→12:28)
[2019-11-11 08:56] VITALS: BMI 40.8
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
[2019-11-11 13:37] VITALS: TEMP 97.7
[2019-11-11] MEDS: PALIPERIDONE 3 MG TAB.ER.24 PO SCH (19:50)
[2019-11-11] MEDS: traZODone HCL 50 MG TAB PO SCH (19:50)
[2019-11-11] MEDS: DIVALPROEX ER 500 MG TAB.ER.24H PO SCH (19:51)
== END 2019-11-11 20:29 | disposition home or self-care (01) | DRG 885 ==
LOC: EC 10:40 → 3MHU 16:32
PROVIDERS: ADMIT Psychiatry & Neurology Psychiatry; ATTEND Psychiatry & Neurology Psychiatry
DX: F31.2 Bipolar disorder, current episode manic severe with psychotic features (principal); Z68.41 Body mass index [BMI] 40.0-44.9, adult; E66.9 Obesity, unspecified; F12.20 Cannabis dependence, uncomplicated; G89.29 Other chronic pain; Z96.651 Presence of right artificial knee joint; Z87.891 Personal history of nicotine dependence; Z86.14 Personal history of Methicillin resistant Staphylococcus aureus infection; Z83.3 Family history of diabetes mellitus; Z82.49 Family history of ischemic heart disease and other diseases of the circulatory system; Z81.8 Family history of other mental and behavioral disorders; Z79.899 Other long term (current) drug therapy; Z88.5 Allergy status to narcotic agent; Z88.0 Allergy status to penicillin; Z88.8 Allergy status to other drugs, medicaments and biological substances; Z88.6 Allergy status to analgesic agent; Z91.040 Latex allergy status
CPT/HCPCS: 70450; 72100; 72125; 80053; 80061; 80164; 80178; 80306; 81001; 81025; 82075; 82565; 83036; 84443; 84450; 84460; 84520; 85025; 87077; 87086; 87186; 99285

== ENCOUNTER 2019-11-14 02:40 | Emergency (ER) | payer OTHER ==
[2019-11-14 02:54] VITALS: BP 125/77; TEMP 98.3
[2019-11-14] MEDS ORDERED: predniSONE 20 MG TAB PO STA (03:09)
[2019-11-14] MEDS ORDERED: diphenhydrAMINE 50 MG/ML 1 ML VIAL IVP STA (03:09)
[2019-11-14] MEDS ORDERED: DIVALPROEX 500 MG TABLET.DR PO STA (03:40)
[2019-11-14 03:44] LABS: African American GFR (CKD) >90 (>60 ml/min/1.73 sqM); Anion Gap 5 mmol/L; Blood Urea Nitrogen 15 mg/dL (7-17); Carbon Dioxide 27 mmol/L (22-30); Chloride 104 mmol/L (98-107); Glucose 94 mg/dL (74-99); Non-African American GFR(CKD) >90 (>60 ml/min/1.73 sqM); Potassium 4.4 mmol/L (3.5-5.1); Sodium 136 mmol/L (137-145)
[2019-11-14 03:45] LABS: Basophils # (A) 0.1 k/uL (0-0.2); Basophils % (A) 1 %; Eosinophils % (A) 9 %; HCT 37.5 % (34.0-46.0); HGB 12.1 gm/dL (11.4-16.0); Lymphocytes # (A) 4.2 k/uL (1.0-4.8); Lymphocytes % (A) 36 %; MCHC 32.3 g/dL (31.0-37.0); MCV 96.1 fL (80.0-100.0); Mean Platelet Volume 7.6; Monocytes # (A) 1.3 k/uL (0-1.0); Monocytes % (A) 12 %; Neutrophils # (A) 4.5 k/uL (1.3-7.7); Neutrophils % (A) 39 %; Platelet Count 289 k/uL (150-450); RBC 3.91 m/uL (3.80-5.40); RDW 12.1 % (11.5-15.5); WBC 11.4 k/uL (3.8-10.6)
[2019-11-14] MEDS ORDERED: hydrOXYzine PAMOATE 25 MG CAP PO ONE (03:50)
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
[2019-11-14 04:35] VITALS: PULSE 97; RESP 16
== END 2019-11-14 04:30 | disposition home or self-care (01) ==
LOC: EC 02:40
DX: L27.0 Generalized skin eruption due to drugs and medicaments taken internally (principal); M79.89 Other specified soft tissue disorders; T50.905A Adverse effect of unspecified drugs, medicaments and biological substances, initial encounter; Z79.899 Other long term (current) drug therapy; Z88.0 Allergy status to penicillin; Z88.5 Allergy status to narcotic agent; Z88.6 Allergy status to analgesic agent; Z91.040 Latex allergy status; Z87.891 Personal history of nicotine dependence; Z96.651 Presence of right artificial knee joint; Z86.718 Personal history of other venous thrombosis and embolism
CPT/HCPCS: 36415; 85379; 80048; 85025; 99283; 96374; J1200; J7512

== ENCOUNTER 2022-07-03 13:09 | Inpatient (IN) | payer MEDICAID, OTHER ==
[2022-07-03] MEDS ORDERED: LORazepam 2 MG/ML INJ IM STA ×2 (14:29→21:38)
[2022-07-03] MEDS ORDERED: LORazepam 2 MG/ML INJ IV STA (14:29)
--- NOTE | 2022-07-03 18:07 | ED ---
Psych HPI - General Source: patient Mode of arrival: EMS <Gem Barahona - Last Filed: 07/03/22 19:03> <Joss Ferrera - Last Filed: 07/03/22 20:48> - General Chief Complaint: Psychiatric Symptoms Stated Complaint: Behavioral Time Seen by Provider: 07/03/22 13:16 - History of Present Illness Initial Comments: Patient is a 36-year-old female who presents for psychiatric evaluation. According to EMS patient was found knocking at a front door stating the house was hers. Patient was walking around outside all night. She agreed psychiatric evaluation. Patient presents very spacey although alert and oriented x 3. States she feels anxious. She denies suicidal or homicidal ideation. Denies visual or auditory hallucinations. Denies alcohol, tobacco, and illicit drug use. Denies fever, chills, chest pain, shortness of breath, abdominal pain, nausea, vomiting, burning with urination. (Gem Barahona) - Related Data Home Medications Medication Instructions Recorded Confirmed Butalb/APAP/Caff 50-325-40Mg 1 tab PO BID PRN 07/03/22 07/03/22 [Fioricet 50-325-40] Cyclobenzaprine [Flexeril] 10 mg PO BID PRN 07/03/22 07/03/22 Divalproex ER [Depakote ER] 1,500 mg PO HS 07/03/22 07/03/22 Divalproex ER [Depakote ER] 250 mg PO DAILY 07/03/22 07/03/22 Divalproex ER [Depakote ER] 500 mg PO DAILY 07/03/22 07/03/22 HYDROcodone/APAP 5-325MG [[place] 1 tab PO TID PRN 07/03/22 07/03/22 5-325] Linaclotide [Linzess] 145 mcg PO AC-BRKFST 07/03/22 07/03/22 [place] Carbonate ER [Lithobid] 450 mg PO DAILY 07/03/22 07/03/22 Oxybutynin Chloride [Ditropan XL] 10 mg PO DAILY 07/03/22 07/03/22 QUEtiapine FUMARATE [SEROquel XR] 400 mg PO HS 07/03/22 07/03/22 Zolpidem [Ambien] 10 mg PO HS PRN 07/03/22 07/03/22 Allergies Allergy/AdvReac Type Severity Reaction Status Date / Time codeine Allergy Unknown Verified 07/03/22 15:40 [From Tylenol-Codeine #3] ibuprofen [From Motrin] Allergy Unknown Verified 07/03/22 15:40 ketorolac [From Toradol] Allergy Unknown Verified 07/03/22 15:40 latex Allergy Unknown Verified 07/03/22 15:40 Penicillins Allergy Unknown Verified 07/03/22 15:40 tramadol Allergy Unknown Verified 07/03/22 15:40 Review of Systems ROS Other: All systems not noted in ROS Statement are negative. <Gem Barahona - Last Filed: 07/03/22 19:03> ROS Other: All systems not noted in ROS Statement are negative. <Joss Ferrera - Last Filed: 07/03/22 20:48> ROS Statement: Those systems with pertinent positive or pertinent negative responses have been documented in the HPI. Past Medical History Smoking Status: Current every day smoker Past Alcohol Use History: Unable to Obtain Past Drug Use History: Unable to Obtain <Gem Barahona - Last Filed: 07/03/22 19:03> General Exam Limitations: no limitations General appearance: alert, in no apparent distress Head exam: Present: atraumatic, normocephalic, normal inspection Respiratory exam: Present: normal lung sounds bilaterally. Absent: respiratory distress, wheezes, rales, rhonchi, stridor Cardiovascular Exam: Present: regular rate, normal rhythm, normal heart sounds. Absent: systolic murmur, diastolic murmur, rubs, gallop, clicks Neurological exam: Present: alert, oriented X3, CN II-XII intact Psychiatric exam: Present: anxious. Absent: normal affect Skin exam: Present: warm, dry, intact, normal color. Absent: rash <Gem Barahona - Last Filed: 07/03/22 19:03> Course Vital Signs 07/03/22 13:10 Temperature 98.3 F Pulse Rate 88 Respiratory 18 Rate O2 Sat by Pulse 100 Oximetry Medical Decision Making <Gem Barahona - Last Filed: 07/03/22 19:03> <Joss Ferrera - Last Filed: 07/03/22 20:48> - Medical Decision Making Was pt. sent in by a medical professional or institution ([facility], [facility]IST, urgent care, hospital, or fci...) When possible be specific @ -[No] Did you speak to anyone other than the patient for history (EMS, parent, family, police, friend...)? What history was obtained from this source @ -[No] Did you review nursing and triage notes (agree or disagree)? Why? @ -[I reviewed and agree with nursing and triage notes] Were old charts reviewed (outside hosp., previous admission, EMS record, old EKG, old radiological studies, urgent care reports/EKG's, fci records)? Report findings @ -[No old charts were reviewed] Differential Diagnosis (chest pain, altered mental status, abdominal pain women, abdominal pain men, vaginal bleeding, weakness, fever, dyspnea, syncope, headache, dizziness, GI bleed, back pain, seizure, CVA, palpatations, mental health)? @ acute psychosis, overdose, ETOH EKG interpreted by me (3pts min.). @ -[As above] X-rays interpreted by me (1pt min.). @ -[None done] CT interpreted by me (1pt min.). @ -[None done] U/S interpreted by me (1pt. min.). @ -[None done] What testing was considered but not performed or refused? (CT, X-rays, U/S, labs)? Why? @ -[None] What meds were considered but not given or refused? Why? @ -[None] Did you discuss the management of the patient with other professionals (professionals i.e. [place] [facility], DIGITAL ARTIST, lab, RT, psych nurse, social worker clinical, emergency planner, teacher, community services officer, onsite case manager)? Give summary @ -[No] Was smoking cessation discussed for >3mins.? @ -[No] Was critical care preformed (if so, how long)? @ -[No] Were there social determinants of health that impacted care today? How? (Homelessness, low income, unemployed, alcoholism, drug addiction, transportation, low edu. Level, literacy, decrease access to med. care, senior care, rehab)? @ -[No] Was there de-escalation of care discussed even if they declined (Discuss DNR or withdrawal of care, Hospice)? DNR status @ -[No] What co-morbidities impacted this encounter? (DM, HTN, Smoking, COPD, CAD, Cancer, CVA, ARF, Chemo, Hep., AIDS, mental health diagnosis, sleep apnea, morbid obesity)? @ -[None] Was patient admitted / discharged? Hospital course, mention meds given and route, prescriptions, significant lab abnormalities, going to OR and other pertinent info. @This is a 36-year-old female presenting for psychiatric evaluation. Patient did try to elope during stay and pulled the fire alarm. She had many paranoid thoughts. Undiagnosed new problem with uncertain prognosis? @ -[No] Drug Therapy requiring intensive monitoring for toxicity (Heparin, Nitro, Insulin, Cardizem)? @ -[No] Were any procedures done? @ -[No] Diagnosis/symptom? @ -[default] Acute, or Chronic, or Acute on Chronic? @ -[default] Uncomplicated (without systemic symptoms) or Complicated (systemic symptoms)? @ -[default] Side effects of treatment? @ -[No] Exacerbation, Progression, or Severe Exacerbation? @ -[No] Poses a threat to life or bodily function? How? (Chest pain, [place], [place], pneumonia, PE, COPD, DKA, ARF, appy, cholecystitis, CVA, Diverticulitis, Homicidal, Suicidal, threat to staff... and all critical care pts) @ -[No] (Gem Barahona) I assumed care of the patient pending EPS evaluation. EPS to evaluate the patient at the bedside and did recommend inpatient treatment. The patient was admitted to the inpatient psychiatric floor. The patient was admitted in stable condition. I did place a clinical certificate on the patient and the patient was petitioned by EPS. (Joss Ferrera) - Lab Data Lab Results 07/03/22 Range/Units 19:54 Urine Color Yellow Urine Appearance Cloudy H (Clear) Urine pH 6.5 (5.0-8.0) Ur Specific [place] 1.027 (1.001-1.035) Urine Protein 1+ H (Negative) Urine Glucose (UA) Negative (Negative) Urine Ketones 1+ H (Negative) Urine Blood Negative (Negative) Urine Nitrite Negative (Negative) Urine Bilirubin Negative (Negative) Urine Urobilinogen <2.0 (<2.0) mg/dL Ur Leukocyte Esterase Negative (Negative) Urine RBC 1 (0-5) /hpf Urine WBC 2 (0-5) /hpf Ur Squamous Epith Cells 7 H (0-4) /hpf Hyaline Casts 4 H (0-2) /lpf Urine Mucus Moderate H (None) /hpf Urine Opiates Screen Detected H (NotDetected) Ur Oxycodone Screen Not Detected (NotDetected) Urine Methadone Screen Not Detected (NotDetected) Ur Propoxyphene Screen Not Detected (NotDetected) Ur Barbiturates Screen Detected H (NotDetected) U Tricyclic Antidepress Detected H (NotDetected) Ur Phencyclidine Scrn Not Detected (NotDetected) Ur Amphetamines Screen Not Detected (NotDetected) U Methamphetamines Scrn Not Detected (NotDetected) U Benzodiazepines Scrn Detected H (NotDetected) Urine Cocaine Screen Not Detected (NotDetected) U Marijuana (THC) Screen Detected H (NotDetected) Disposition <Gem Barahona - Last Filed: 07/03/22 19:03> Time of Disposition: 20:00 Decision to Admit Reason: Admit from EC Decision Date: 07/03/22 Decision Time: 20:00 <Joss Ferrera - Last Filed: 07/03/22 20:48> Clinical Impression: Acute psychosis Disposition: ADMITTED IP TO THIS [facility] Condition: Stable Referrals: None,Stated [Primary Care Provider] - 1-2 days
[2022-07-03 20:27] LABS: Appearance,Urine Cloudy (Clear); Bilirubin,Urine Negative (Negative); Blood,Urine Negative (Negative); Color,Urine Yellow; Glucose,Urine (UA) Negative (Negative); Hyaline Casts,Urine 4 /lpf (0-2); Ketones,Urine 1+ (Negative); Leukocyte Esterase,Urine Negative (Negative); Mucus,Urine Moderate /hpf; Nitrite,Urine Negative (Negative); PH, Urine 6.5 (5.0-8.0); Protein,Urine 1+ (Negative); RBC,Urine 1 /hpf (0-5); Specific Gravity,Urine 1.027 (1.001-1.035); Squamous Epithelial Cell,Urine 7 /hpf (0-4); Urobilinogen,Urine <2.0 mg/dL (<2.0); WBC,Urine 2 /hpf (0-5)
[2022-07-03 20:40] LABS: Amphetamine Screen,Urine Not Detected (NotDetected); Barbiturate Screen,Urine Detected (NotDetected); Benzodiazepines Screen,Urine Detected (NotDetected); Cocaine Screen,Urine Not Detected (NotDetected); Methadone Screen, Urine Not Detected (NotDetected); Opiate Screen,Urine Detected (NotDetected); Oxycodone Screen, Urine Not Detected (NotDetected); Phencyclidine Screen,Urine Not Detected (NotDetected); Tricyclic Antidepressant,Urine Detected (NotDetected); Urn Cannabinoid Scrn Detected (NotDetected)
[2022-07-03] MEDS ORDERED: HALOPERIDOL LACTATE 5 MG/ML 1 ML VIAL IM PRN (21:38)
[2022-07-03] MEDS ORDERED: diphenhydrAMINE 50 MG/ML 1 ML VIAL IM STA (21:38)
[2022-07-03] MEDS ORDERED: HALOPERIDOL LACTATE 5 MG/ML 1 ML VIAL IM STA (21:41)
[2022-07-03] MEDS ORDERED: ACETAMINOPHEN TAB 325 MG TAB PO PRN (23:21)
[2022-07-04] MEDS ORDERED: HALOPERIDOL LACTATE 5 MG/ML 1 ML VIAL IM PRN
[2022-07-04] MEDS ORDERED: haloperidoL 5 MG TAB PO PRN
[2022-07-04] MEDS ORDERED: LORazepam 2 MG/ML INJ IM PRN
[2022-07-04] MEDS: QUEtiapine 200 MG TAB PO SCH ×3 (01:05→20:16)
[2022-07-04] MEDS: DIVALPROEX ER 500 MG TAB.ER.24H PO SCH ×3 (01:05→20:16)
[2022-07-04 08:14] LABS: Basophils % (A) 0 %; Eosinophils # (A) 0.2 k/uL (0-0.7); Eosinophils % (A) 2 %; HCT 41.5 % (34.0-46.0); HGB 13.7 gm/dL (11.4-16.0); Lymphocytes # (A) 3.3 k/uL (1.0-4.8); Lymphocytes % (A) 32 %; MCH 31.3 pg (25.0-35.0); MCHC 32.9 g/dL (31.0-37.0); MCV 94.9 fL (80.0-100.0); Mean Platelet Volume 7.2; Monocytes # (A) 0.9 k/uL (0-1.0); Monocytes % (A) 9 %; Neutrophils # (A) 5.5 k/uL (1.3-7.7); Neutrophils % (A) 53 %; Platelet Count 316 k/uL (150-450); RBC 4.37 m/uL (3.80-5.40); RDW 13.2 % (11.5-15.5); WBC 10.2 k/uL (3.8-10.6)
[2022-07-04 08:27] LABS: ALT 28 U/L (4-34); AST 33 U/L (14-36); African American GFR (CKD) >90 (>60 ml/min/1.73 sqM); Albumin 3.9 g/dL (3.5-5.0); Alkaline Phosphatase 42 U/L (38-126); Anion Gap 3 mmol/L; Blood Urea Nitrogen 15 mg/dL (7-17); Calcium 9.1 mg/dL (8.4-10.2); Carbon Dioxide 26 mmol/L (22-30); Chloride 108 mmol/L (98-107); Glucose 95 mg/dL (74-99); Non-African American GFR(CKD) 79 (>60 ml/min/1.73 sqM); Potassium 4.3 mmol/L (3.5-5.1); Sodium 137 mmol/L (137-145); Total Bilirubin 0.6 mg/dL (0.2-1.3); Total Protein 6.3 g/dL (6.3-8.2)
[2022-07-04] MEDS ORDERED: LITHIUM CARBONATE ER 450 MG TABLET.ER PO SCH (09:00)
[2022-07-04] MEDS ORDERED: NICOTINE 14MG/24HR PATCH TRANSDERM SCH (09:00)
[2022-07-04] MEDS ORDERED: MAGNESIUM HYDROXIDE 2,400 MG/10 ML CUP PO PRN (09:00)
[2022-07-04] MEDS: DIVALPROEX ER 250 MG TAB.ER.24H PO SCH (09:10)
[2022-07-04] MEDS: OXYBUTYNIN 10 MG TAB.ER.24 PO SCH (09:10)
[2022-07-04] MEDS: LORazepam 1 MG TAB PO PRN ×3 (09:11→23:14)
[2022-07-04] MEDS: NON FORMULARY DRUG (Linaclotide [Linzess] 145 MCG Capsule) PO SCH (09:13)
[2022-07-04 10:36] LABS: Lithium <0.2 mmol/L
[2022-07-04] MEDS: MAG HYDROX/AL HYDROX/SIMETH 30 ML CUP PO PRN (12:02)
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
[2022-07-04 19:21] LABS: Chol/HDL Ratio 3.57 Ratio; LDL Cholesterol,Calculated 120.5 mg/dL (0.0-131.0)
[2022-07-04] MEDS: LITHIUM CARBONATE 150 MG CAP PO SCH (20:16)
[2022-07-04] MEDS: BUTALB/APAP/CAFF 50-325-40MG TAB PO PRN (20:17)
[2022-07-04] MEDS: CYCLOBENZAPRINE 10 MG TAB PO PRN (20:17)
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
[2022-07-05] MEDS: DIVALPROEX ER 500 MG TAB.ER.24H PO SCH ×2 (08:26→20:14)
[2022-07-05] MEDS: DIVALPROEX ER 250 MG TAB.ER.24H PO SCH (08:26)
[2022-07-05] MEDS: LITHIUM CARBONATE 150 MG CAP PO SCH ×2 (08:26→20:14)
[2022-07-05] MEDS: OXYBUTYNIN 10 MG TAB.ER.24 PO SCH (08:27)
[2022-07-05] MEDS: QUEtiapine 200 MG TAB PO SCH ×2 (08:27→20:14)
[2022-07-05] MEDS: NON FORMULARY DRUG (Linaclotide [Linzess] 145 MCG Capsule) PO SCH (08:27)
[2022-07-05] MEDS ORDERED: LITHIUM CARBONATE ER 450 MG TABLET.ER PO SCH (09:00)
--- NOTE | 2022-07-05 11:54 | P.PN ---
Progress Note - Text Progress Note Date: 07/05/22 Interval History: Patient was seen wandering the hallways and was directable and agreeable to speak with customs entry writer in the office. Currently, the patient is reporting that she is feeling well. She is currently denying any suicidal or homicidal ideation, intention, or plan. She is not reporting any auditory or visual hallucinations. She has been adherent with medications and is not endorsing any significant side effects. The patient was noted to sleep for 4.5 hours last night. She otherwise reports future and goal orientation. She states that she is prescribed [place] for knee pain as she has had bilateral knee replacements. She however has run out of her prescription and this is confirmed on [facility]. She plans to defer mental health court and agree to mental health court order and to continue taking her medications. She is not endorsing any racing thoughts, mood lability, or grandiosity. Mental Status Exam: General Appearance: Patient appears to be stated age is alert, directable, and cooperative. Behavior: Patient is calmly seated without any agitated behavior. Speech: Patient's speech is fluent and nonpressured. Mood/Affect: Mood is improving mildly, affect is congruent and bright Suicidality/Homicidality: Patient denies having any suicidal or homicidal ideation intent or plan. Perceptions: Patient denies any visual hallucinations and denies any auditory hallucinations Though content/process: No overt delusional thought content endorsed today. Memory and concentration: AOX3, grossly intact for the purposes of this session Judgment and insight: Improving mildly Vital Signs Temp 97.9 F 07/05/22 06:50 Pulse 115 H 07/05/22 06:50 Resp 16 07/05/22 06:50 BP 140/90 07/05/22 06:50 Pulse Ox 96 07/05/22 06:50 FiO2 Laboratory Results - Last 24 Hours 07/04/22 07/04/22 07:22 07:[address] Glu mg/dL 91 Hemoglobin A1c 4.8 Triglycerides 132.00 Cholesterol 204.00 H LDL Cholesterol, Calc 120.5 VLDL Cholesterol, Calc 26.40 HDL Cholesterol 57.10 Cholesterol/HDL Ratio 3.57 Assessment Schizoaffective disorder, bipolar type Cannabis use disorder Plan: -Patient continues to meet criteria for inpatient psychiatric admission for symptom stabilization and safety. The patient has been petitioned and certified. -Medications: Continue Depakote 750 mg by mouth in a.m. and 1500 mg by mouth at bedtime for mood stabilization Continue [place] 450 mg by mouth twice a day for mood stabilization. [place] level on admission was 0.2. Continue Seroquel 200 mg by mouth twice a day for mood stabilization/psychosis We'll restart the patient's [place] 3 times daily when necessary for pain -When necessary Ativan and Haldol for agitation/aggression. -NRT - nicotine patch -SW on board for discharge planning. Encouraged the patient to participate in milieu.
[2022-07-05] MEDS: LORazepam 1 MG TAB PO PRN ×2 (12:28→18:26)
[2022-07-05] MEDS: HYDROcodone/APAP 5-325MG 1 EACH TAB PO PRN (12:28)
[2022-07-05] MEDS: MAG HYDROX/AL HYDROX/SIMETH 30 ML CUP PO PRN (16:22)
[2022-07-06] MEDS: LORazepam 1 MG TAB PO PRN ×3 (00:07→20:07)
[2022-07-06] MEDS: NON FORMULARY DRUG (Linaclotide [Linzess] 145 MCG Capsule) PO SCH (07:32)
[2022-07-06] MEDS: LITHIUM CARBONATE 150 MG CAP PO SCH ×2 (07:33→20:06)
[2022-07-06] MEDS: HYDROcodone/APAP 5-325MG 1 EACH TAB PO PRN ×2 (07:34→20:10)
[2022-07-06] MEDS: QUEtiapine 200 MG TAB PO SCH ×2 (07:34→20:07)
[2022-07-06] MEDS: OXYBUTYNIN 10 MG TAB.ER.24 PO SCH (07:34)
[2022-07-06] MEDS: DIVALPROEX ER 250 MG TAB.ER.24H PO SCH (07:34)
[2022-07-06] MEDS: DIVALPROEX ER 500 MG TAB.ER.24H PO SCH ×2 (07:35→20:06)
--- NOTE | 2022-07-06 11:43 | P.PN ---
Progress Note - Text Progress Note Date: 07/06/22 Interval History: Patient was seen wandering the hallways and was directable and agreeable to speak with law writer in the office. The patient continues to report that she is feeling well. She is currently denying any suicidal or homicidal ideation, intention, and/or plan. She reports no auditory or visual hallucinations. She reports no paranoia or other delusions. She has been adherent with her medications and is not reporting any significant side effects. She plans to defer mental health court. Mental Status Exam: General Appearance: Patient appears to be stated age is alert, directable, and cooperative. Behavior: Patient is calmly seated without any agitated behavior. Speech: Patient's speech is fluent and nonpressured. Mood/Affect: Mood is improving mildly, affect is congruent and bright Suicidality/Homicidality: Patient denies having any suicidal or homicidal ideat ion intent or plan. Perceptions: Patient denies any visual hallucinations and denies any auditory hallucinations Though content/process: No overt delusional thought content endorsed today. Memory and concentration: AOX3, grossly intact for the purposes of this session Judgment and insight: Improving mildly Vital Signs Temp 97.8 F 07/06/22 06:34 Pulse 101 H 07/06/22 06:34 Resp 18 07/06/22 06:34 BP 115/74 07/06/22 06:34 Pulse Ox 100 07/06/22 06:34 FiO2 Laboratory Results - Last 24 Hours 07/04/22 07:22 Valproic Acid 32.0 L Assessment Schizoaffective disorder, bipolar type Cannabis use disorder Plan: -Patient continues to meet criteria for inpatient psychiatric admission for symptom stabilization and safety. The patient has been petitioned and certified. Patient plans to defer. -Medications: Continue Depakote 750 mg by mouth in a.m. and 1500 mg by mouth at bedtime for mood stabilization Continue [place] 450 mg by mouth twice a day for mood stabilization. [place] level on admission was 0.2. Continue Seroquel 200 mg by mouth twice a day for mood stabilization/psychosis CMP, Depakote level, and [place] level ordered for tomorrow. -When necessary Ativan and Haldol for agitation/aggression. -NRT - nicotine patch -SW on board for discharge planning. Encouraged the patient to participate in milieu.
[2022-07-06] MEDS: MAG HYDROX/AL HYDROX/SIMETH 30 ML CUP PO PRN ×2 (15:02→21:37)
[2022-07-07] MEDS: ZOLPIDEM 5 MG TAB PO PRN ×2 (00:59→20:06)
[2022-07-07 06:53] LABS: Albumin 3.5 g/dL (3.5-5.0); Calcium 8.7 mg/dL (8.4-10.2); Lithium 0.7 mmol/L; Potassium 4.5 mmol/L (3.5-5.1); Total Bilirubin 0.3 mg/dL (0.2-1.3); Total Protein 5.8 g/dL (6.3-8.2)
[2022-07-07 06:58] LABS: Valproic Acid (Depakene) 65.2 ug/mL
[2022-07-07] MEDS: LITHIUM CARBONATE 150 MG CAP PO SCH ×2 (08:50→20:04)
[2022-07-07] MEDS: DIVALPROEX ER 500 MG TAB.ER.24H PO SCH ×2 (08:50→20:03)
[2022-07-07] MEDS: QUEtiapine 200 MG TAB PO SCH ×2 (08:51→20:03)
[2022-07-07] MEDS: OXYBUTYNIN 10 MG TAB.ER.24 PO SCH (08:51)
[2022-07-07] MEDS: DIVALPROEX ER 250 MG TAB.ER.24H PO SCH (08:51)
[2022-07-07] MEDS: LORazepam 1 MG TAB PO PRN ×3 (08:53→20:06)
[2022-07-07] MEDS: NON FORMULARY DRUG (Linaclotide [Linzess] 145 MCG Capsule) PO SCH (08:54)
--- NOTE | 2022-07-07 11:05 | P.PN ---
Progress Note - Text Progress Note Date: 07/07/22 Interval History: Patient was seen wandering the hallways and was directable and agreeable to speak with sba underwriter in the office. The patient reports that she is feeling well. She states she is happy to receive ativan as needed for anxiety and expresses concern about not being prescribed this medication in the outpatient setting. She reports she is eating and sleeping well. She reports no auditory or visual hallucinations. She denies any paranoia or other delusions. She denies any suicidal or homicidal ideation, intention, and/or plan. She reports no side effects of her medications and has been adherent. She is agreeable to sign voluntarily onto the psychiatric unit as her court paperwork was initially signed under "Sharmaine Silva" rather than her official legal name. No reported medical issues or concerns. Mental Status Exam: General Appearance: Patient appears to be stated age is alert, directable, and cooperative. Behavior: Patient is calmly seated without any agitated behavior. Speech: Patient's speech is fluent and nonpressured. Mood/Affect: Mood is improving mildly, affect is congruent and bright Suicidality/Homicidality: Patient denies having any suicidal or homicidal ideation intent or plan. Perceptions: Patient denies any visual hallucinations and denies any auditory hallucinations Though content/process: No overt delusional thought content endorsed today. Memory and concentration: AOX3, grossly intact for the purposes of this session Judgment and insight: Improving mildly Vital Signs Temp 97.1 F L 07/07/22 02:50 Pulse 104 H 07/07/22 02:50 Resp 17 07/07/22 02:50 BP 119/77 07/07/22 02:50 Pulse Ox 100 07/07/22 02:50 FiO2 Laboratory Results - Last 24 Hours 07/07/22 06:04 Sodium 137 Potassium 4.5 Chloride 108 H Carbon Dioxide 27 Anion Gap 2 BUN 15 Creatinine 0.97 Est GFR (CKD-EPI)AfAm 87 Est GFR (CKD-EPI)NonAf 75 Glucose 83 Calcium 8.7 Total Bilirubin 0.3 AST 27 ALT 35 H Alkaline Phosphatase 37 L Total Protein 5.8 L Albumin 3.5 Valproic Acid 65.2 [place] 0.7 Assessment Schizoaffective disorder, bipolar type Cannabis use disorder Plan: -Patient continues to meet criteria for inpatient psychiatric admission for symptom stabilization and safety. Patient signed voluntarily onto the psychiatric unit. -Medications: Continue Depakote 750 mg by mouth in a.m. and 1500 mg by mouth at bedtime for mood stabilization Continue [place] 450 mg by mouth twice a day for mood stabilization. [place] level on admission was 0.2. Continue Seroquel 200 mg by mouth twice a day for mood stabilization/psychosis -When necessary Ativan and Haldol for agitation/aggression. -NRT - nicotine patch -SW on board for discharge planning. Encouraged the patient to participate in milieu.
[2022-07-07] MEDS: HYDROcodone/APAP 5-325MG 1 EACH TAB PO PRN ×2 (11:20→20:06)
[2022-07-07] MEDS: MAG HYDROX/AL HYDROX/SIMETH 30 ML CUP PO PRN ×2 (12:19→16:50)
[2022-07-07] MEDS: CYCLOBENZAPRINE 10 MG TAB PO PRN (22:03)
[2022-07-07] MEDS: BUTALB/APAP/CAFF 50-325-40MG TAB PO PRN (22:03)
[2022-07-08] MEDS: LITHIUM CARBONATE 150 MG CAP PO SCH ×2 (08:41→19:56)
[2022-07-08] MEDS: OXYBUTYNIN 10 MG TAB.ER.24 PO SCH (08:41)
[2022-07-08] MEDS: PANTOPRAZOLE 40 MG TABLET PO SCH (08:41)
[2022-07-08] MEDS: DIVALPROEX ER 500 MG TAB.ER.24H PO SCH ×2 (08:41→19:56)
[2022-07-08] MEDS: NON FORMULARY DRUG (Linaclotide [Linzess] 145 MCG Capsule) PO SCH (08:41)
[2022-07-08] MEDS: DIVALPROEX ER 250 MG TAB.ER.24H PO SCH (08:42)
[2022-07-08] MEDS: QUEtiapine 200 MG TAB PO SCH ×2 (08:42→19:56)
[2022-07-08] MEDS: LORazepam 1 MG TAB PO PRN ×3 (08:43→22:05)
[2022-07-08] MEDS: HYDROcodone/APAP 5-325MG 1 EACH TAB PO PRN ×2 (08:43→19:59)
--- NOTE | 2022-07-08 16:09 | P.PN ---
Progress Note - Text Progress Note Date: 07/08/22 Interval history: Patient was seen resting in bed and was directable and agreeable to speak with contract technical writer. She reports her mood is "mixed feelings", but also feels "a lot better today". She reports good sleep and good appetite. She is fixated on being an "empath" and feels things deeply. At this time, patient denies any suicidal or homicidal ideation, intent or plan. Denies any auditory or visual hallucinations. Patient denies any side effects from the medications and has b een compliant with meds. She reports benefit from the meds and states they help slow down her thoughts so she is not so overwhelmed. She is attending some groups but not all. Labs reviewed and Valproic acid and [place] levels are therapeutic, 65.2 and 0.7 respectively. No tremors or EPS observed. Mental status exam: General Appearance: Patient appears to be stated age, obese female, hair blonde, dressed in clean casual attire Behavior: No agitated behavior. Patient is calm and directable. Speech: Patient's speech is fluent and rapid, but non-pressured. Mood/Affect: Mood is improving mildly, affect is congruent. Suicidality/Homicidality: Patient denies having any suicidal or homicidal ideation intent or plan. Perceptions: Patient denies any auditory or visual hallucinations. Though content/process: There is no evidence of any delusional thought content and thought process is circumstantial. Memory and concentration: AOX3, grossly intact for the purposes of this session Judgment and insight: improving mildly Assessment/Plan: Continue with current diagnosis. Patient continues to meet criteria for inpatient psychiatric admission for symptom stabilization and safety. Patient will be maintained on current psychotropic medication regimen. Monitor for medication compliance and for any psychotropic medication side effects. Will continue to monitor ongoing response to treatment. Encouraged participation in milieu.
[2022-07-08] MEDS: ZOLPIDEM 5 MG TAB PO PRN (19:59)
[2022-07-08] MEDS: CYCLOBENZAPRINE 10 MG TAB PO PRN (22:05)
[2022-07-09] MEDS: LORazepam 1 MG TAB PO PRN ×3 (04:18→14:31)
[2022-07-09] MEDS: LITHIUM CARBONATE 150 MG CAP PO SCH ×2 (08:41→19:33)
[2022-07-09] MEDS: DIVALPROEX ER 500 MG TAB.ER.24H PO SCH ×2 (08:42→19:33)
[2022-07-09] MEDS: PANTOPRAZOLE 40 MG TABLET PO SCH (08:42)
[2022-07-09] MEDS: QUEtiapine 200 MG TAB PO SCH ×2 (08:43→19:33)
[2022-07-09] MEDS: DIVALPROEX ER 250 MG TAB.ER.24H PO SCH (08:43)
[2022-07-09] MEDS: OXYBUTYNIN 10 MG TAB.ER.24 PO SCH (08:43)
[2022-07-09] MEDS: HYDROcodone/APAP 5-325MG 1 EACH TAB PO PRN ×2 (08:46→16:48)
[2022-07-09] MEDS: NON FORMULARY DRUG (Linaclotide [Linzess] 145 MCG Capsule) PO SCH (08:53)
[2022-07-09 17:01] VITALS: RESP 16
[2022-07-09] MEDS ORDERED: PROPRANOLOL 10 MG TAB PO PRN (17:25)
--- NOTE | 2022-07-09 17:33 | P.PN ---
Progress Note - Text Progress Note Date: 07/09/22 Interval history: Patient was seen socializing with peers in the [facility] and was directable and agreeable to speak with typewriter repairer. She reports her mood is "good" today, and is cheery and smiling on assessment. She reports good sleep and good appetite. She has utilized her PRN Ativan 1 mg po x 3 so far today, and about 3 daily since admission. We discussed the risk of dependence with Ativan and she reports finding the Ativan control her anger and anxiety. We discussed a trial of Propranolol to help with the physical manifestations of her anxiety and she agrees to try this. At this time, patient denies any suicidal or homicidal ideation, intent or plan. Denies any auditory or visual hallucinations. Patient denies any side effects from the medications and has been compliant with meds. She is attending some groups. Labs reviewed and Valproic acid and [place] levels are therapeutic, 65.2 and 0.7 respectively. No tremors or EPS observed. Mental status exam: General Appearance: Patient appears to be stated age, obese female, hair blonde, dressed in clean casual attire Behavior: No agitated behavior. Patient is calm and directable. Speech: Patient's speech is fluent and non-pressured. Mood/Affect: Mood is "good", affect is bright and reactive. Suicidality/Homicidality: Patient denies having any suicidal or homicidal ideation intent or plan. Perceptions: Patient denies any auditory or visual hallucinations. Though content/process: There is no evidence of any delusional thought content and thought process is circumstantial. Memory and concentration: AOX3, grossly intact for the purposes of this session Judgment and insight: improving mildly Assessment/Plan: Continue with current diagnosis. Patient continues to meet criteria for inpatient psychiatric admission for symptom stabilization and safety. Decrease Ativan 1 mg po QID PRN to Ativan 0.5 mg po TID PRN for anxiety/agitation to minimize dependence. Start trial of Propranolol 10 mg BID PRN for anxiety. Monitor for medication compliance and for any psychotropic medication side effects. Will continue to monitor ongoing response to treatment. Encouraged participation in milieu.
[2022-07-09] MEDS: LORazepam 0.5 MG TAB PO SCH (19:33)
[2022-07-09] MEDS: ZOLPIDEM 5 MG TAB PO PRN (19:34)
[2022-07-09] MEDS: BUTALB/APAP/CAFF 50-325-40MG TAB PO PRN (20:34)
[2022-07-09] MEDS: CYCLOBENZAPRINE 10 MG TAB PO PRN (20:35)
[2022-07-10] MEDS: HYDROcodone/APAP 5-325MG 1 EACH TAB PO PRN (03:51)
[2022-07-10 03:53] VITALS: BP 111/63; PULSE 101; TEMP 97.8
[2022-07-10] MEDS: LORazepam 0.5 MG TAB PO SCH (08:34)
[2022-07-10] MEDS: DIVALPROEX ER 250 MG TAB.ER.24H PO SCH (08:34)
[2022-07-10] MEDS: DIVALPROEX ER 500 MG TAB.ER.24H PO SCH (08:35)
[2022-07-10] MEDS: LITHIUM CARBONATE 150 MG CAP PO SCH (08:35)
[2022-07-10] MEDS: PANTOPRAZOLE 40 MG TABLET PO SCH (08:35)
[2022-07-10] MEDS: QUEtiapine 200 MG TAB PO SCH (08:35)
[2022-07-10] MEDS: OXYBUTYNIN 10 MG TAB.ER.24 PO SCH (08:35)
[2022-07-10] MEDS: NON FORMULARY DRUG (Linaclotide [Linzess] 145 MCG Capsule) PO SCH (08:36)
--- NOTE | 2022-07-10 11:10 | P.DS ---
Providers Date of admission: 07/03/22 23:09 Expected date of discharge: 07/10/22 Attending physician: Sedrick Anguiano MD Consults: 07/03/22 23:21 Consult Physician Routine Consulting Provider: Mary Tamayo Consult Reason/Comments: H&P and medical Do you want consulting provider notified?: Yes Primary care physician: Stated None - Discharge Diagnosis(es) (1) Schizoaffective disorder, bipolar type Current Visit: Yes Status: Acute Priority: High (2) Cannabis use disorder Current Visit: Yes Status: Chronic Priority: Medium Hospital Course: Admission HPI: Patient is a single, on disability, 36-year-old female whose legal name is Sharmaine Clinton, and has a significant history of bipolar disorder who presnted to our emergency department by police for acute psychotic/manic behavior. Patient presented to the hospital on 07/03/2022. The patient was brought into the emergency department by police. While in the emergency department, the patient pulled the fire alarm and attempted to elope from the emergency unit. She was brought back to her room. She appeared to be responding to internal stimuli. She would laugh inappropriately and appeared to have poor understanding of the reality around her. The patient reported that she had gone onto someone's porch and "smashed too stupid ass turtles" before stating, "I wanted go ravage to hell on them. The ones that have fallen out God's graces and have disobeyed." She was noted to be giggling nonsensically all stating these things. She was subsequently petitioned and certified and admitted to the psychiatric unit. On admission on the psychiatric unit, it was determined that the patient's legal name is Sharmaine Clinton and she has been previously admitted to our psychiatric unit. Upon evaluation of the patient, the patient is unable to provide a clear history of consuming up to this hospitalization. She does not recall being brought to the emergency department by police. She states that she has been having difficult time this time of year because this is the 4 year anniversary of the passing of her uncle. She does report she was staying with a close friend named Pieter Prajapati however they had a falling out and now she is homeless. The patient did report that she has been adherent with her psychiatric medications and is open with the [facility] ACT team. Collateral infromation was obtained by Jaida Alcaraz from [facility] ACT Team. She reports that Sharmaine Clinton is client of theirs that is seen on a Sunday to Sunday basis. They report she has been adherent with medications however states that she did have friends over recently and there is concern that she has been using more marijuana. They report that during her last med review, she had her seroquel increased due to worsening manic symptoms. They confirm that her name is Sharmaine Clinton and are unfamiliar with any name change. A second clinical certificate has been filed for court. Patient has previous diagnoses of bipolar disorder and schizoaffective disorder. Patient's home medication regimen includes Seroquel, Depakote, lithium, and Ambien. Previous trials of medication include Prolixin, Cymbalta, Lamictal, Klonopin, Vistaril, Remeron, and Geodon. She was last hospitalized on our psychiatric unit in October 2019. She is currently open with [facility] ACT team Patient denies any history of suicide attempts in the past. Hospital course: Upon admission to the unit patient was initially presenting as overtly manic and grandiose. Furthermore, the patient gave the correct last name listed herself is "Sharmaine Silva" and not "Sharmaine Clinton." She reported "Sharmaine Clinton" was internally. Patient was however directable and agreeable to commence tr eatment. Patient got along well with other patients on the unit and followed unit protocol. Patient was compliant with the medications and denied any side effects throughout hospital course. Patient was started on her home medications of depakote and seroquel. [place] was titrated due to a subtherapeutic lithium level. Patient spoke of her stressors and engaged in therapy both group and individual. Patient was also seen by medical team for history and physical exam. She was initially petitioned and certified however due to the incorrect name filing, there was miscommunication with the courts. The patient was however agreeable to signing in voluntarily and was adherent with treatment. She displayed significant improvement in regards to her target symptoms of sourav. She had better sleep, decreased grandiosity, and was linear and logical in conversation. On the day of discharge, the patient is not reporting any auditory or visual hallucinations. She is denying any paranoia or other delusions. She denies any suicidal or homicidal ideation, intention, and/or plan. She reports no access to firearms or other weapons. The patient was encouraged to follow-up with her outpatient appointment for mental health and primary care and to be adherent with her prescribed medications. The patient does have significant history of substance use and discuss a great length and abstaining from all substances including alcohol, marijuana, tobacco, and illicit drugs. Prior to discharge, a family meeting was arranged by social services counselor to answer any questions and ensure safety. Mental status exam: General Appearance: Patient appears to be stated age is alert, pleasant, and cooperative. Patient is in no acute distress and has fair hygiene and grooming Behavior: Patient is calmly seated without any agitated behavior. Speech: Patient's speech is fluent and nonpressured. Mood/Affect: Patient reports their mood is "feeling really good", affect is congruent and euthymic to bright. Appropriate range. Suicidality/Homicidality: Patient denies having any suicidal or homicidal ideation intent or plan. Perceptions: Patient denies any auditory or visual hallucinations. Though content/process: There is no evidence of any delusional thought content and thought process is linear and goal-directed. Patient is future oriented Memory and concentration: AOX3, grossly intact for the purposes of this session. Can spell "WORLD" backwards correctly. Judgment and insight: Improved with guarded prognosis Impression: Schizoaffective disorder, bipolar type Cannabis use disorder Plan: -Continue with discharge today as patient has improved and stabilized psychiatrically and is not currently an imminent threat to herself and/or others. Patient will remain at chronically elevated risk due to her cannabis use and the severity of her mental illness. She is open with ACT team. -Continue medications: Depakote ER 750 mg by mouth every morning and 1500 mg by mouth daily at bedtime for mood stabilization [place] 450 mg here twice a day for mood stabilization Seroquel 200 mg here twice a day for mood stabilization/psychosis Inderal 10 mg by mouth twice a day when necessary for anxiety -Patient was counseled on the need for medication compliance and appropriate follow-up at mental health and also primary care for medical issues. Patient verbalized understanding and agreed. -Social work to arrange for and conduct family meeting to ensure safety upon discharge and answer any questions/concerns. Social work also to arrange for patients follow up appointments with [facility] for psychiatric care along with follow up with primary care provider. -Patient counseled on abstaining from recreational drugs and marijuana and alcohol. Was informed/educated on the adverse effects on their physical and mental health. Patient verbally agreed and understood. -Patient was instructed to return to the hospital or seek immediate medical care if their psychiatric or medical symptoms do worsen or reoccur. -Psychoeducation and supportive therapy provided to patient. Risks and benefits of pharmacological treatment versus the risks and benefits of nontreatment weight and discussed. Informed consent discussion held. Common side effects of psychotropics discussed such as, but not limited to headache, GI disturbance, sexual dysfunction, movement disorders, sedation, and orthostatic hypotension. Life threatening and blackbox warnings of prescribed medications also discussed. Potential risks of operating a vehicle or heavy machinery discussed with patient at length. Advised on importance of compliance and a reliable and responsible manner. Patient advised to review FDA consumer labeling of all medications prior to taking. Patient verbalized understanding of potential risks, and agrees with current treatment plan. Patient advised to medically contact physician/emergency personnel if any acute changes in condition occur. Vital Signs Temp 97.8 F 07/10/22 03:52 Pulse 101 H 07/10/22 03:52 Resp 16 07/10/22 03:52 BP 111/63 07/10/22 03:52 Pulse Ox 98 07/10/22 03:52 FiO2 Intake & Output 07/09/22 07/10/22 07/10/22 18:59 06:59 18:59 Weight 120.4 kg Laboratory Results WBC 10.2 k/uL (3.8-10.6) 07/04/22 07:22 RBC 4.37 m/uL (3.80-5.40) 07/04/22 07:22 Hgb 13.7 gm/dL (11.4-16.0) 07/04/22 07:22 Hct 41.5 % (34.0-46.0) 07/04/22 07:22 MCV 94.9 fL (80.0-100.0) 07/04/22 07:22 MCH 31.3 pg (25.0-35.0) 07/04/22 07:22 MCHC 32.9 g/dL (31.0-37.0) 07/04/22 07:22 RDW 13.2 % (11.5-15.5) 07/04/22 07:22 Plt Count 316 k/uL (150-450) 07/04/22 07:22 MPV 7.2 07/04/22 07:22 Neutrophils % 53 % 07/04/22 07:22 Lymphocytes % 32 % 07/04/22 07: Monocytes % 9 % 07/04/22 07: Eosinophils % 2 % 07/04/22 07: Basophils % 0 % 07/04/22 07:22 Neutrophils # 5.5 k/uL (1.3-7.7) 07/04/22 07:22 Lymphocytes # 3.3 k/uL (1.0-4.8) 07/04/22 07: Monocytes # 0.9 k/uL (0-1.0) 07/04/22 07: Eosinophils # 0.2 k/uL (0-0.7) 07/04/22 07: Basophils # 0.0 k/uL (0-0.2) 07/04/22 07:22 Sodium 137 mmol/L (137-145) 07/07/22 06:04 Potassium 4.5 mmol/L (3.5-5.1) 07/07/22 06:04 Chloride 108 mmol/L (98-107) H 07/07/22 06:04 Carbon Dioxide 27 mmol/L (22-30) 07/07/22 06:04 Anion Gap 2 mmol/L 07/07/22 06:04 BUN 15 mg/dL (7-17) 07/07/22 06:04 Creatinine 0.97 mg/dL (0.52-1.04) 07/07/22 06:04 Est GFR (CKD-EPI)AfAm 87 (>60 ml/min/1.73 sqM) 07/07/22 06:04 Est GFR (CKD-EPI)NonAf 75 (>60 ml/min/1.73 sqM) 07/07/22 06:04 Glucose 83 mg/dL (74-99) 07/07/22 06:[address] Glu mg/dL 91 07/04/22 07:22 Hemoglobin A1c 4.8 % (0.0-6.0) 07/04/22 07:22 Calcium 8.7 mg/dL (8.4-10.2) 07/07/22 06:04 Total Bilirubin 0.3 mg/dL (0.2-1.3) 07/07/22 06:04 AST 27 U/L (14-36) 07/07/22 06:04 ALT 35 U/L (4-34) H 07/07/22 06:04 Alkaline Phosphatase 37 U/L (38-126) L 07/07/22 06:04 Total Protein 5.8 g/dL (6.3-8.2) L 07/07/22 06:04 Albumin 3.5 g/dL (3.5-5.0) 07/07/22 06:04 Triglycerides 132.00 mg/dL (0.00-149.00) 07/04/22 07:22 Cholesterol 204.00 mg/dL (0.00-200.00) H 07/04/22 07:22 LDL Cholesterol, Calc 120.5 mg/dL (0.0-131.0) 07/04/22 07:22 VLDL Cholesterol, Calc 26.40 mg/dL (5.00-40.00) 07/04/22 07:22 HDL Cholesterol 57.10 mg/dL (40.00-60.00) 07/04/22 07:22 Cholesterol/HDL Ratio 3.57 Ratio 07/04/22 07:22 TSH 2.620 mIU/L (0.465-4.680) 07/04/22 07:22 Urine Color Yellow 07/03/22 19:54 Urine Appearance Cloudy (Clear) H 07/03/22 19:54 Urine pH 6.5 (5.0-8.0) 07/03/22 19:54 Ur Specific [place] 1.027 (1.001-1.035) 07/03/22 19:54 Urine Protein 1+ (Negative) H 07/03/22 19:54 Urine Glucose (UA) Negative (Negative) 07/03/22 19:54 Urine Ketones 1+ (Negative) H 07/03/22 19:54 Urine Blood Negative (Negative) 07/03/22 19:54 Urine Nitrite Negative (Negative) 07/03/22 19:54 Urine Bilirubin Negative (Negative) 07/03/22 19:54 Urine Urobilinogen <2.0 mg/dL (<2.0) 07/03/22 19:54 Ur Leukocyte Esterase Negative (Negative) 07/03/22 19:54 Urine RBC 1 /hpf (0-5) 07/03/22 19:54 Urine WBC 2 /hpf (0-5) 07/03/22 19:54 Ur Squamous Epith Cells 7 /hpf (0-4) H 07/03/22 19:54 Hyaline Casts 4 /lpf (0-2) H 07/03/22 19:54 Urine Mucus Moderate /hpf (None) H 07/03/22 19:54 Urine HCG, Qual Not Detected (Not Detectd) 07/03/22 19:54 Urine Opiates Screen Detected (NotDetected) H 07/03/22 19:54 Ur Oxycodone Screen Not Detected (NotDetected) 07/03/22 19:54 Urine Methadone Screen Not Detected (NotDetected) 07/03/22 19:54 Ur Propoxyphene Screen Not Detected (NotDetected) 07/03/22 19:54 Ur Barbiturates Screen Detected (NotDetected) H 07/03/22 19:54 Valproic Acid 65.2 ug/mL 07/07/22 06:04 U Tricyclic Antidepress Detected (NotDetected) H 07/03/22 19:54 Ur Phencyclidine Scrn Not Detected (NotDetected) 07/03/22 19:54 Ur Amphetamines Screen Not Detected (NotDetected) 07/03/22 19:54 U Methamphetamines Scrn Not Detected (NotDetected) 07/03/22 19:54 U Benzodiazepines Scrn Detected (NotDetected) H 07/03/22 19:54 [place] 0.7 mmol/L 07/07/22 06:04 Urine Cocaine Screen Not Detected (NotDetected) 07/03/22 19:54 U Marijuana (THC) Screen Detected (NotDetected) H 07/03/22 19:54 Coronavirus (PCR) Not Detected (Not Detectd) 07/03/22 21:10 Allergies Allergy/AdvReac Type Severity Reaction Status Date / Time codeine Allergy Unknown Verified 07/04/22 00:21 [From Tylenol-Codeine #3] ibuprofen [From Motrin] Allergy Unknown Verified 07/04/22 00:21 ketorolac [From Toradol] Allergy Unknown Verified 07/04/22 00:21 latex Allergy Unknown Verified 07/04/22 00:21 Penicillins Allergy Unknown Verified 07/04/22 00:21 tramadol Allergy Unknown Verified 07/04/22 00:21 Patient Condition at Discharge: Stable Plan - Discharge Summary Discharge Rx Participant: No New Discharge Prescriptions: New Divalproex ER [Depakote ER] 500 mg PO DAILY 30 Days #30 tab Divalproex ER [Depakote ER] 1,500 mg PO HS 30 Days #90 tab Pantoprazole [Protonix] 40 mg PO AC-BRKFST 30 Days #30 tab Divalproex ER [Depakote ER] 250 mg PO DAILY 30 Days #30 tab [place] Carbonate 450 mg PO BID 30 Days #30 cap QUEtiapine [SEROquel] 200 mg PO BID 30 Days #30 tab Propranolol [Inderal] 10 mg PO BID PRN 30 Days #60 tab PRN Reason: Anxiety Continue Linaclotide [Linzess] 145 mcg PO AC-BRKFST Butalb/APAP/Caff 50-325-40Mg [Fioricet 50-325-40] 1 tab PO BID PRN PRN Reason: Migraine Headache Zolpidem [Ambien] 10 mg PO HS PRN PRN Reason: Insomnia HYDROcodone/APAP 5-325MG [[place] 5-325] 1 tab PO TID PRN PRN Reason: Pain Cyclobenzaprine [Flexeril] 10 mg PO BID PRN PRN Reason: Muscle Spasm Oxybutynin Chloride [Ditropan XL] 10 mg PO DAILY Discontinued [place] Carbonate ER [Lithobid] 450 mg PO DAILY Divalproex ER [Depakote ER] 500 mg PO DAILY QUEtiapine FUMARATE [SEROquel XR] 400 mg PO HS Divalproex ER [Depakote ER] 1,500 mg PO HS Divalproex ER [Depakote ER] 250 mg PO DAILY Discharge Medication List Butalb/APAP/Caff 50-325-40Mg [Fioricet 50-325-40] 1 tab PO BID PRN 07/03/22 [History] Cyclobenzaprine [Flexeril] 10 mg PO BID PRN 07/03/22 [History] HYDROcodone/APAP 5-325MG [[place] 5-325] 1 tab PO TID PRN 07/03/22 [History] Linaclotide [Linzess] 145 mcg PO AC-BRKFST 07/03/22 [History] Oxybutynin Chloride [Ditropan XL] 10 mg PO DAILY 07/03/22 [History] Zolpidem [Ambien] 10 mg PO HS PRN 07/03/22 [History] Divalproex ER [Depakote ER] 1,500 mg PO HS 30 Days #90 tab 07/10/22 [Rx] Divalproex ER [Depakote ER] 250 mg PO DAILY 30 Days #30 tab 07/10/22 [Rx] Divalproex ER [Depakote ER] 500 mg PO DAILY 30 Days #30 tab 07/10/22 [Rx] [place] Carbonate 450 mg PO BID 30 Days #30 cap 07/10/22 [Rx] Pantoprazole [Protonix] 40 mg PO AC-BRKFST 30 Days #30 tab 07/10/22 [Rx] Propranolol [Inderal] 10 mg PO BID PRN 30 Days #60 tab 07/10/22 [Rx] QUEtiapine [SEROquel] 200 mg PO BID 30 Days #30 tab 07/10/22 [Rx] Follow up Appointment(s)/Referral(s): [facility] [Outside] - 07/11/22 11:30 am (07-11-22 11:30 Dr. Andrade 07-11-22 1200pm ACT ) [facility] [NON-STAFF] - 1 Week Patient Instructions/Handouts: Schizoaffective Disorder (DC) Activity/Diet/Wound Care/Special Instructions: Avoid the use of street drugs and alcohol. Take all prescriptions as prescribed. When you are in need of refills on your medications, please contact your medical provider and/or outpatient psychiatrist to have this done. Please go to scheduled outpatient appointment for aftercare treatment. If symptoms return or become worse, call the crisis line at and/or go to the nearest emergency room for evaluation Discharge Disposition: HOME SELF-CARE
== END 2022-07-10 13:05 | disposition home or self-care (01) | DRG 885 ==
LOC: EC 13:09 → 3MHU 23:09 → MERGE 23:09 → 3MHU 07-06 06:12
PROVIDERS: ADMIT Psychiatry & Neurology Psychiatry; ATTEND Psychiatry & Neurology Psychiatry
DX: F25.0 Schizoaffective disorder, bipolar type (principal); F12.90 Cannabis use, unspecified, uncomplicated; F17.200 Nicotine dependence, unspecified, uncomplicated; F41.9 Anxiety disorder, unspecified; Z59.00 Homelessness unspecified; Z79.899 Other long term (current) drug therapy; Z20.822 Contact with and (suspected) exposure to COVID-19
CPT/HCPCS: 80053; 80061; 80164; 80178; 80306; 81001; 81025; 82075; 83036; 84443; 85025; 87635; 96372; 99285

== ENCOUNTER 2023-10-15 05:26 | Emergency (ER) | payer OTHER ==
[2023-10-15 05:39] VITALS: RESP 16; TEMP 98.1
[2023-10-15 06:56] LABS: Basophils # (A) 0.1 k/uL (0-0.2); Basophils % (A) 0 %; Eosinophils # (A) 0.4 k/uL (0-0.7); Eosinophils % (A) 3 %; HCT 34.9 % (34.0-46.0); Lymphocytes # (A) 3.3 k/uL (1.0-4.8); Lymphocytes % (A) 26 %; MCH 35.8 pg (25.0-35.0); MCHC 34.3 g/dL (31.0-37.0); MCV 104.4 fL (80.0-100.0); Macrocytosis Slight; Mean Platelet Volume 10.3; Monocytes # (A) 0.9 k/uL (0-1.0); Monocytes % (A) 7 %; Neutrophils # (A) 8.1 k/uL (1.3-7.7); Neutrophils % (A) 63 %; Platelet Count 189 k/uL (150-450); RBC 3.34 m/uL (3.80-5.40); WBC 12.9 k/uL (3.8-10.6)
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
--- NOTE | 2023-10-15 07:31 | US ---
EXAMINATION TYPE: US venous doppler duplex LE RT DATE OF EXAM: 10/15/2023 6:33 AM COMPARISON: 01/08/2016 CLINICAL INDICATION: Female, 38 years old with history of pain; edema SIDE PERFORMED: Right TECHNIQUE: The lower extremity deep venous system is examined utilizing real time linear array sonog maru with graded compression, doppler sonography and color-flow sonography. VESSELS IMAGED: Common Femoral Vein Deep Femoral Vein Greater Saphenous Vein * Femoral Vein Popliteal Vein Small Saphenous Vein * Proximal Calf Veins (* superficial vessels) Right Leg: Negative for DVT IMPRESSION: Grayscale, color doppler, spectral doppler imaging performed of the deep veins of the lo wer extremities. There is normal flow, compressibility, vascular waveforms.
[2023-10-15 08:14] LABS: ALT 16 U/L (4-34); AST 17 U/L (14-36); African American GFR (CKD) >90 (>60 ml/min/1.73 sqM); Albumin 2.7 g/dL (3.5-5.0); Alkaline Phosphatase 46 U/L (38-126); Anion Gap 3 mmol/L; Blood Urea Nitrogen 9 mg/dL (7-17); Calcium 7.9 mg/dL (8.4-10.2); Carbon Dioxide 24 mmol/L (22-30); Chloride 115 mmol/L (98-107); Glucose 77 mg/dL (74-99); Non-African American GFR(CKD) >90 (>60 ml/min/1.73 sqM); Potassium 3.5 mmol/L (3.5-5.1); Sodium 142 mmol/L (137-145); Total Bilirubin 0.3 mg/dL (0.2-1.3)
[2023-10-15 08:23] LABS: NT-Pro-B-Type Natriuretic Pept 310 pg/mL
[2023-10-15] MEDS: FUROSEMIDE 10 MG/ML 4 ML VIAL IV STA (08:46)
[2023-10-15 10:03] VITALS: BP 118/76; PULSE 69
== END 2023-10-15 09:31 | disposition home or self-care (01) ==
LOC: EC 05:26
DX: L03.115 Cellulitis of right lower limb (principal); F17.290 Nicotine dependence, other tobacco product, uncomplicated; Z88.5 Allergy status to narcotic agent; Z91.040 Latex allergy status
CPT/HCPCS: 36415; 83880; 80053; 83605; 85025; 93971; 99284; 96374; J1940

== ENCOUNTER 2023-10-22 19:13 | Emergency (ER) | payer OTHER ==
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
[2023-10-22 19:32] VITALS: BP 104/71; PULSE 70; RESP 18; TEMP 98.2
[2023-10-22 19:53] LABS: Basophils # (A) 0.1 k/uL (0-0.2); Basophils % (A) 1 %; Eosinophils # (A) 0.5 k/uL (0-0.7); Eosinophils % (A) 4 %; HCT 36.8 % (34.0-46.0); HGB 12.3 gm/dL (11.4-16.0); Lymphocytes # (A) 3.1 k/uL (1.0-4.8); Lymphocytes % (A) 30 %; MCHC 33.4 g/dL (31.0-37.0); Macrocytosis Slight; Mean Platelet Volume 8.6; Monocytes # (A) 0.7 k/uL (0-1.0); Monocytes % (A) 7 %; Neutrophils # (A) 5.9 k/uL (1.3-7.7); Neutrophils % (A) 57 %; Platelet Count 251 k/uL (150-450); RDW 11.5 % (11.5-15.5); WBC 10.3 k/uL (3.8-10.6)
[2023-10-22 20:06] LABS: Partial Thromboplastin Time 25.5 sec (22.0-30.0); Prothrombin Time 11.3 sec (10.0-12.5)
--- NOTE | 2023-10-22 20:06 | XR ---
EXAMINATION TYPE: XR chest 2V DATE OF EXAM: 10/22/2023 COMPARISON: 01/08/2016 HISTORY: Chest pain TECHNIQUE: Frontal and lateral views of the chest are obtained. FINDINGS: There is no focal air space opacity, pleural effusion, or pneumothorax seen. The cardiac silhouette size is within normal limits. The osseous structures are intact. IMPRESSION: No acute cardiopulmonary process.
[2023-10-22 20:11] LABS: ALT 21 U/L (4-34); African American GFR (CKD) 77 (>60 ml/min/1.73 sqM); Albumin 3.6 g/dL (3.5-5.0); Anion Gap 2 mmol/L; Blood Urea Nitrogen 13 mg/dL (7-17); Calcium 9.2 mg/dL (8.4-10.2); Carbon Dioxide 26 mmol/L (22-30); Chloride 106 mmol/L (98-107); Glucose 92 mg/dL (74-99); Non-African American GFR(CKD) 67 (>60 ml/min/1.73 sqM); Sodium 134 mmol/L (137-145)
[2023-10-22 20:17] LABS: AST 48 U/L (14-36); Alkaline Phosphatase 49 U/L (38-126); Magnesium 2.1 mg/dL (1.6-2.3); Potassium 4.8 mmol/L (3.5-5.1); Total Bilirubin 0.7 mg/dL (0.2-1.3); Total Protein 6.4 g/dL (6.3-8.2)
[2023-10-22] MEDS: IBUPROFEN 600 MG TAB PO STA (22:33)
[2023-10-22] MEDS: AZITHROMYCIN 500 MG TAB PO STA (22:33)
[2023-10-22] MEDS: IBUPROFEN 600 MG STARTER PACK 4 TAB BTL PO STA (22:33)
== END 2023-10-22 22:49 | disposition home or self-care (01) ==
LOC: EC 19:13
DX: J18.9 Pneumonia, unspecified organism (principal); F17.290 Nicotine dependence, other tobacco product, uncomplicated; Z88.5 Allergy status to narcotic agent; Z91.040 Latex allergy status
CPT/HCPCS: 36415; 71046; 80053; 83735; 84484; 85025; 85610; 85730; 93005; 99285